=== PATIENT | female | born 1955 | race Two or more races ===

== ENCOUNTER 2025-05-01 16:28 | Inpatient (IN) | payer OTHER ==
[~2025-05-01] VITALS: Ht 157.5 cm; Wt 92.9 kg
[~2025-05-01 16:28] MED LIST: ATOR20TA50 PO; LEVO100T8 PO; LISI-285 PO; TAMO20TA9 PO
[2025-05-01 16:42] VITALS: PULSE 85; RESP 19; O2SAT 97
[2025-05-01 17:01] LABS: Hematocrit 29.6 % (36.0-46.0); Hemoglobin 10.1 g/dL (12.2-16.2); Mean Corpuscular Hemoglobin 32.0 pg (28.0-32.0); Mean Corpuscular Volume 94.1 fL (80.0-100.0); Nucleated Red Blood Cells % 0.1 %
[2025-05-01 17:12] LABS: Chloride 107 mmol/L (98-107); Potassium 3.9 mmol/L (3.5-5.1); Sodium 143 mmol/L (136-145)
[2025-05-01 17:13] LABS: Anion Gap 11 (5-15); Carbon Dioxide 25 mmol/L (20-31)
--- NOTE | 2025-05-01 17:18 | DVH ---
CLINICAL HISTORY: chest pain TECHNIQUE: Single view of the chest was obtained. COMPARISON: None FINDINGS: The heart size is borderline enlarged with pulmonary vascular congestion. No dense consolidation. IMPRESSION: Pulmonary vascular congestion.
[2025-05-01 17:19] LABS: BUN/Creatinine Ratio 17.9 (10.0-20.0); Glucose 106 mg/dL (74-106)
[2025-05-01 17:37] LABS: Urine Protein, UAD Negative (Negative)
[2025-05-01 17:37] LABS: Blood Urea Nitrogen 24 mg/dL (9-23); Calcium 8.6 mg/dL (8.7-10.4)
--- NOTE | 2025-05-01 17:52 | ED.PDOC ---
History of Present Illness HPI Comments 70 year old female presents to the ED via EMS with a chief complaint of flu-like symptoms onset 1 day. Patient states she returned from her trip to [facility] [place] ago. She began experiencing cough, congestion, runny nose, chest pain, shortness of breath since for the past day. She went to [facility], was sent to ED. Patient O2 sat was 97% on RA. Denies fever, nausea, vomiting, diarrhea, headache, dizziness, hematemesis, dysuria, hematuria. No other symptoms or modifying factors present at this time. Chief Complaint: Flu like Time Seen by MD: 17:20 Reviewed Notes: Medications, Allergies Allergies: Coded Allergies: NO KNOWN ALLERGIES (Unverified , 05/01/25) Information Source: Patient, Emergency Med Personnel Mode of Arrival: EMS Severity: Moderate Timing: Days Duration: Since onset Prehospital treatment: None Past Medical History PAST MEDICAL HISTORY: Denies Surgical History: Denies all surgeries TOOL DISPATCHER History: No Pertinent TOOL DISPATCHER History Family History Family History: Reviewed,noncontributory to illness, No family hx of Cancer, No family hx of DM, No family hx of Heart tom, No family hx of HTN, No family hx ofKidney tom, No family hx of Liver tom, No family hx of Lung tom, No family hx of Stroke Social History Smoker: Non-Smoker Alcohol: Denies ETOH Use Drugs: Denies Drug Use Lives In: Home Constitutional: reports: chills; denies: diaphoresis, fatigue, fever, malaise, sweats, weakness, others EENTM: reports: nose congestion; denies: blurred vision, double vision, ear bleeding, ear discharge, ear drainage, ear pain, ear ringing, eye pain, eye redness, hearing loss, mouth pain, mouth swelling, nasal discharge, nose bleeding, nose pain, photophobia, tearing, throat pain, throat swelling, voice changes, others Respiratory: reports: cough, shortness of breath; denies: hemoptysis, orthopnea, SOB at rest, SOB with excertion, stridor, wheezing, others Cardiovascular: reports: chest pain; denies: dizzy spells, diaphoresis, Dyspnea on exertion, edema, irregular heart beat, left arm pain, lightheadedness, palpitations, PND, syncope, others Gastrointestinal: denies: abdomen distended, abdominal pain, blood streaked bowels, constipated, diarrhea, dysphagia, difficulty swallowing, hematemesis, melena, nausea, poor appetite, poor fluid intake, rectal bleeding, rectal pain, vomiting, others Genitourinary: denies: abnormal vagina bleeding, burning, dyspareunia, dysuria, flank pain, frequency, hematuria, incontinence, pain, , vagina discharge, urgency, others Neurological: denies: dizziness, fainting, headache, left sided numbness, left sided weakness, numbness, paresthesia, pre-existing deficit, right sided numbness, right sided weakness, seizure, speech problems, tingling, tremors, weakness, others Musculoskeletal: denies: back pain, gout, joint pain, joint swelling, muscle pain, muscle stiffness, neck pain, others Integumetry: denies: bruises, change in color, change in hair/nails, dryness, laceration, lesions, lumps, rash, wounds, others Allergic/Immunocompromised: denies: Difficulty Healing, Frequent Infections, Hives, Itching, others Hematologic/Lymphatic: denies: anemia, blood clots, easy bleeding, easy bruising, swollen glands, others Endocrine: denies: excessive hunger, excessive sweating, excessive thirst, excessive urination, flushing, intolerance to cold, intolerance to heat, unex plained weight gain, unexplained weight loss, others Psychiatric: denies: anxiety, bipolar disorder, depression, hopeless, panic disorder, schizophrenia, sleepless, suicidal, others All Other Systems: Reviewed and Negative Physical Exam General Appearance: Normal HEENT: Normal ENT Inspection, Pharynx Normal, TMs Normal Neck: Full Range of Motion, Non-Tender, Normal, Normal Inspection Respiratory: Chest Non-Tender, Lungs Clear, No Accessory Muscle Use, No Respiratory Distress, Normal Breath Sounds Cardiovascular: No Edema, No JVD, No Murmur, No Gallop, Normal Peripheral Pulses, Regular Rate/Rhythm Breast Exam: Deferred Gastrointestinal: No Organomegaly, Non Tender, No Pulsatile Mass, Normal Bowel Sounds, Soft Genitalia: Deferred Pelvic: Deferred Rectal: Deferred Extremities: No calf tenderness, Normal capillary refill, Normal inspection, Normal range of motion, Non-tender, No pedal edema Musculoskeletal : Apperance: Normal Neurologic: Alert, cell changer II-XII nml as Tested, No Motor Deficits, Normal Affect, Normal Mood, No Sensory Deficits Cerebellar Function: Normal Reflexes: Normal Skin: Dry, Normal Color, Warm Lymphatic: No Adenopathy Was a procedure done? Was a procedure done?: No Differential Dx Considerations may include: ACS, CVA, viral syndrome, electrolyte abnormality, pulmonary embolism, pneumonia X-Ray, Labs, Meds, VS Vital Signs Date Time Temp Pulse Resp B/P (MAP) Pulse Ox O2 Delivery O2 Flow Rate FiO2 05/01/25 16:42 19 97 Room Air* 0 21 05/01/25 16:42 98.8 85 19 126/45 (72) 97 98.8 05/01/25 16:42 85 19 97 Room Air* 0 21 05/01/25 16:30 85 05/01/25 16:29 98.8 87 18 157/69 97 98.8 Lab Test 05/01/25 17:43 05/01/25 17:09 05/01/25 16:49 Range/Units Troponin I High Sensitivity 90 *H 100 *H </=34 ng/L Urine Color Colorless Yellow Urine Clarity Clear Clear Urine pH 5.5 5.0-9.0 Urine Specific [place] 1.014 1.001-1.035 Urine Protein Negative Negative Urine Ketones Negative Negative Urine Blood Negative Negative /uL Urine Nitrite Negative Negative Urine Bilirubin Negative Negative Urine Urobilinogen Normal Negative mg/dL Urine Leukocyte Esterase Negative Negative /uL Urine RBC <1 0 - 4 /hpf Urine Microscopic WBC 1 0-5 /HPF Urine Squamous Epithelial Cells Few <5 /hpf Urine Bacteria None seen None Seen /hpf Urine Glucose Normal Normal mg/dL White Blood Count 8.3 4.4-10.8 10^3/uL Red Blood Count 3.14 L 4.0-5.20 10^6/uL Hemoglobin 10.1 L 12.2-16.2 g/dL Hematocrit 29.6 L 36.0-46.0 % Mean Corpuscular Volume 94.1 80.0-100.0 fL Mean Corpuscular Hemoglobin 32.0 28.0-32.0 pg Mean Corpuscular Hemoglobin Concent 34.0 32.0-36.0 g/dL Red Cell Distribution Width 12.7 11.8-14.3 % Platelet Count 250 140-450 10^3/uL Mean Platelet Volume 7.0 6.9-10.8 fL Neutrophils (%) (Auto) 73.0 37.0-80.0 % Lymphocytes (%) (Auto) 18.7 10.0-50.0 % Monocytes (%) (Auto) 7.0 0.0-12.0 % Eosinophils (%) (Auto) 0.9 0.0-7.0 % Basophils (%) (Auto) 0.4 0.0-2.0 % Neutrophils # (Auto) 6.1 1.6-8.6 10 ^3/uL Lymphocytes # (Auto) 1.6 0.4-5.4 10 ^3/uL Monocytes # (Auto) 0.6 0-1.3 10 ^3/uL Eosinophils # (Auto) 0.1 0-0.8 10 ^3/uL Basophils # (Auto) 0 0-0.2 10 ^3/uL Nucleated Red Blood Cells 0.1 % D-Dimer, Quantitative 1.80 H 0.0-0.49 mg/L FEU Sodium Level 143 136-145 mmol/L Potassium Level 3.9 3.5-5.1 mmol/L Chloride Level 107 98-107 mmol/L Carbon Dioxide Level 25 20-31 mmol/L Anion Gap 11 5-15 Blood Urea Nitrogen 24 H 9-23 mg/dL Creatinine 1.34 H 0.550-1.02 mg/dL Glomerular Filtration Rate Calc 42 >90 mL/min BUN/Creatinine Ratio 17.9 10.0-20.0 Serum Glucose 106 74-106 mg/dL Calcium Level 8.6 L 8.7-10.4 mg/dL Time of 1ST Reevaluation: 17:50 Reevaluation 1ST: Unchanged Patient Education/Counseling: Diagnosis, Treatment, Prognosis Family Education/Counseling: No Family Present SEPSIS Sepsis Screen Date sepsis recognized/suspect: May 01, 2025 Time Sepsis recognized/suspect: 1641 Recent Procedure: No On Antibiotic Therapy: No Respiratory Rate >20: No Heart Rate >90: No Temp<36 C (96.8 F) or >38.3 C: No SBP <90 or MAP <65 mmHG: No New Acute Mental Status Change: No Is the patient on CPAP, BIPAP,: No Physician Orders Chest Portable (05/01/25 16:37) Electrocardigram (05/01/25 16:34) Troponin-I Hs (05/01/25 19:34) Electrocardigram (05/01/25 17:34) Electrocardigram (05/01/25 19:34) Ct Angio Chest Contrast (05/01/25 18:13) Vital Signs Date Time Temp Pulse Resp B/P (MAP) Pulse Ox O2 Delivery O2 Flow Rate FiO2 05/01/25 16:42 19 97 Room Air* 0 21 05/01/25 16:42 98.8 85 19 126/45 (72) 97 98.8 05/01/25 16:42 85 19 97 Room Air* 0 21 05/01/25 16:30 85 05/01/25 16:29 98.8 87 18 157/69 97 98.8 Laboratory Tests Test 05/01/25 16:49 White Blood Count 8.3 10^3/uL (4.4-10.8) Departure 1 Departure Time of Disposition: 18:35 (Patient with worsening shortness of breath and generalized weakness concerning for possible PE given recent flight. We will get a CT angio patient admit patient for further workup and expert consultation) Impression: Primary Impression: Acute dyspnea Additional Impressions: Generalized weakness Elevated d-dimer Disposition: ADMITTED INPATIENT Admit to: Tele Condition: Guarded Critical Care Note Critical Care Time?: Yes Critical care comment: Concern for PE and acute chest pain Authorized and Performed by: James Jon MD Total critical care time: Approximately 47 minutes Due to a high probability of clinically significant, life threatening deterioration, the patient required my highest level of preparedness to intervene emergently and I personally spent this critical care time directly and personally managing the patient. This critical care time included obtaining a history; examining the patient; pulse oximetry; ordering and review of studies; arranging urgent treatment with development of a management plan; evaluation of patient's response to treatment; frequent reassessment; and, discussions with other providers. This critical care time was performed to assess and manage the high probability of imminent, life-threatening deterioration that could result in multi-organ failure. It was exclusive of separately billable procedures and treating other patients and teaching time. Please see my other sections and the rest of the note for further information on patient assessment and treatment. Stability Stability form required: No Heart Score Heart Score: Heart Score Response (Comments) Value History N/A 0 EKG N/A 0 Age N/A 0 Risk Factors N/A 0 Troponin N/A 0 Total 0 I personally scribed for JAMES JON MD ([email or web address]) on 05/01/25 at 17:52. Electronically submitted by Manju Holly ([email or web address]). JAMES JON MD May 01, 2025 17:52
[2025-05-01] MEDS: IOHEXOL 350 MG/ML 100ML IJ ONE (18:21)
[2025-05-01] MEDS: SODIUM CHLORIDE 0.9% 500 ML IV ONE (18:51)
--- NOTE | 2025-05-01 19:07 | DVH ---
EXAM: CT CT ANGIO CHEST CONTRAST HISTORY: chest pain, sob, elevated ddimer TECHNIQUE: CT angiogram was performed. CT scans at this facility use dose modulation, iterative recon struction, and/or weight based dosing when appropriate to reduce radiation dose to as low as reasonab ly achievable. Coronal and sagittal reformations and maximum intensity projection images were created from the transaxial source data by the charge histotechnologist and workstation, as well as 3-D volume render ed images with MIPs. COMPARISON: None FINDINGS: [LOWER NECK]: Unremarkable [LYMPH NODES/MEDIASTINUM]: Right lower paratracheal lymph node, 0.9 cm. [CARDIOVASCULAR]: Normal cardiac size. No pericardial effusion. No aneurysmal dilatation of the great vessels. Coronary artery calcifications. [PULMONARY ARTERIES]: No pulmonary arterial filling defect. Normal caliber of the main pulmonary joshua ry. No evidence of elevated right heart pressures. [UPPER ABDOMEN]: Unremarkable. [MUSCULOSKELETAL]: No acute fracture or aggressive focal osseous lesion. Multilevel degenerative newton ge of the visualized spine. Vertebral body hemangioma of T6. [CHEST WALL]: Unremarkable. [LUNG PARENCHYMA/PLEURAL SPACE]: Areas of ground-glass in the periphery of the right upper lobe likel y related to areas of pulmonary alveolar edema. Likely exaggerated secondary to expiratory phase of i maging. No pleural effusion or pneumothorax. IMPRESSION: 1. No acute pulmonary embolism. 2. Areas of ground-glass in the periphery of the right upper lobe likely related to areas of pulmonar y alveolar edema.
[2025-05-01 19:23] VITALS: PULSE 92; RESP 20; O2SAT 97
[2025-05-01] MEDS: guaiFENesin-DM 100/10mg/5ml SYR PO ONE (20:41)
[2025-05-01] MEDS ORDERED: NITROGLYCERIN 0.4 MG SL TAB SL PRN (21:00)
[2025-05-01] MEDS ORDERED: MORPHINE SULFATE INJ 2 MG/ml SYRG IV PRN (21:00)
--- NOTE | 2025-05-01 21:04 | DVHHPRES ---
History of Present Illness Resident Creating Document: DESIREE READ RESIDENT History of Present Illness Verónica Keenan is a 70-year-old female patient who presents to the ED with chief complaint of progressive aching chest pain located focally in left side of chest, radiates towards the back, intensity 8/10, worsens with cough, lying flat and deep breaths, improves with a leaning forward, initially started in Functional Class II and progressed to functional class IV three days before her admission, associated with dyspnea, chills, bilateral leg swelling and nonproductive cough. Patient reports recent 12 hour flight which was completed on Wednesday (04/29/2025). She also reports diagnosis of otitis media two weeks ago requiring prednisone and amoxicillin. Denies any other associated symptom Past medical history: Hypertension, dyslipidemia, left breast cancer diagnosed four years ago status post lumpectomy and radiotherapy, asthma, hypothyroidism, urinary incontinence and vulvar atrophy Surgical history: Left breast lumpectomy, tendon repair in left finger Family history: Six and have breast cancer Social history: Lives in [place] with the (negative can not). Denies current tobacco, alcohol and other drug abuse Allergies: Denies Home medication: Tamoxifen, lisinopril/hydrochlorothiazide, atorvastatin, lev othyroxine, benzonatate, albuterol, amoxicillin, prednisone (these last two only for two weeks due to otitis media) Patient is seen and examined at bedside. Currently still complains of cough and chest pain. Patient will be admitted for further management. Past Medical History Per HPI Past Surgical History Per HPI Family History Per HPI Past Social History Per HPI Review of Systems Review of Systems Per HPI Allergies: Coded Allergies: NO KNOWN ALLERGIES (Unverified , 05/01/25) Exam Vital Signs Vital Signs Date Time Temp Pulse Resp B/P (MAP) Pulse Ox O2 Delivery O2 Flow Rate FiO2 05/01/25 19:23 92 20 97 Room Air* 0 21 05/01/25 19:23 98.1 152/88 (109) 98.1 Exam Patient lying in bed, in no acute distress General: Lucid, afebrile, mucosae are moist Cardiovascular: Normal S1 and S2. pericardial rub present. No murmurs, gallops. Chest pain improves with leaning forward, worsens in decubitus Respiratory: Normal ventilation mechanics. Bibasilar crackles of lung auscultation is clear Abdomen: Soft, nontender, no organomegaly, normal bowel sounds MSK/skin: Mobilizes 4 limbs. Skin is dry and warm. Bilateral infrapatellar pitting edema Neurological: Oriented in 3 spheres. No motor no sensitive deficits. Pupils are isocoric and reactive Labs/Xrays Labs Test 05/01/25 19:52 05/01/25 17:09 05/01/25 16:49 Range/Units Troponin I High Sensitivity 123 *H </=34 ng/L Urine Color Colorless Yellow Urine Clarity Clear Clear Urine pH 5.5 5.0-9.0 Urine Specific [place] 1.014 1.001-1.035 Urine Protein Negative Negative Urine Ketones Negative Negative Urine Blood Negative Negative /uL Urine Nitrite Negative Negative Urine Bilirubin Negative Negative Urine Urobilinogen Normal Negative mg/dL Urine Leukocyte Esterase Negative Negative /uL Urine RBC <1 0 - 4 /hpf Urine Microscopic WBC 1 0-5 /HPF Urine Squamous Epithelial Cells Few <5 /hpf Urine Bacteria None seen None Seen /hpf Urine Glucose Normal Normal mg/dL White Blood Count 8.3 4.4-10.8 10^3/uL Red Blood Count 3.14 L 4.0-5.20 10^6/uL Hemoglobin 10.1 L 12.2-16.2 g/dL Hematocrit 29.6 L 36.0-46.0 % Mean Corpuscular Volume 94.1 80.0-100.0 fL Mean Corpuscular Hemoglobin 32.0 28.0-32.0 pg Mean Corpuscular Hemoglobin Concent 34.0 32.0-36.0 g/dL Red Cell Distribution Width 12.7 11.8-14.3 % Platelet Count 250 140-450 10^3/uL Mean Platelet Volume 7.0 6.9-10.8 fL Neutrophils (%) (Auto) 73.0 37.0-80.0 % Lymphocytes (%) (Auto) 18.7 10.0-50.0 % Monocytes (%) (Auto) 7.0 0.0-12.0 % Eosinophils (%) (Auto) 0.9 0.0-7.0 % Basophils (%) (Auto) 0.4 0.0-2.0 % Neutrophils # (Auto) 6.1 1.6-8.6 10 ^3/uL Lymphocytes # (Auto) 1.6 0.4-5.4 10 ^3/uL Monocytes # (Auto) 0.6 0-1.3 10 ^3/uL Eosinophils # (Auto) 0.1 0-0.8 10 ^3/uL Basophils # (Auto) 0 0-0.2 10 ^3/uL Nucleated Red Blood Cells 0.1 % D-Dimer, Quantitative 1.80 H 0.0-0.49 mg/L FEU Sodium Level 143 136-145 mmol/L Potassium Level 3.9 3.5-5.1 mmol/L Chloride Level 107 98-107 mmol/L Carbon Dioxide Level 25 20-31 mmol/L Anion Gap 11 5-15 Blood Urea Nitrogen 24 H 9-23 mg/dL Creatinine 1.34 H 0.550-1.02 mg/dL Glomerular Filtration Rate Calc 42 >90 mL/min BUN/Creatinine Ratio 17.9 10.0-20.0 Serum Glucose 106 74-106 mg/dL Calcium Level 8.6 L 8.7-10.4 mg/dL SEPSIS Sepsis Screen Date sepsis recognized/suspect: May 01, 2025 Time Sepsis recognized/suspect: 1926 Recent Procedure: No On Antibiotic Therapy: No Respiratory Rate >20: No Heart Rate >90: No Temp<36 C (96.8 F) or >38.3 C: No SBP <90 or MAP <65 mmHG: No New Acute Mental Status Change: No Is the patient on CPAP, BIPAP,: No Physician Orders Chest Portable (05/01/25 16:37) Electrocardigram (05/01/25 16:34) Electrocardigram (05/01/25 17:34) Electrocardigram (05/01/25 19:34) Ct Angio Chest Contrast (05/01/25 18:13) Rapid Influenza A&B (05/01/25 20:25) Covid19 Antigen Alecia (05/01/25 ) Vitamin D, 25-Hydroxy (05/01/25 20:59) Vitamin B12 (05/01/25 20:59) Thyroid Stimulating Hormone (05/01/25 20:59) PTPTT (05/02/25 04:00) Phosphorus (05/01/25 20:59) Magnesium (05/01/25 20:59) Lipid Panel (05/01/25 20:59) Lactic Acid W/ Reflex Order (05/01/25 20:59) Hemoglobin A1c (05/01/25 20:59) Drug Screen (05/01/25 20:59) Admit (05/01/25 20:59) Code Status (05/01/25 20:59) Acetaminophen Tablet (Tylenol Tablet) (05/01/25 21:00) Complete Blood Count (05/02/25 04:00) Comprehensive Metabolic Panel (05/02/25 04:00) Npo (Nothing By Mouth) Diet (05/02/25 Breakfast) Echo 2d Mode Cardiac Dop (05/01/25 20:59) Morphine Sulfate Injection (05/01/25 21:00) Lovenox 40mg (05/02/25 10:00) Nitroglycerin Sublingual (Ntrostat Subli (05/01/25 21:00) Morphine Sulfate Injection (05/01/25 21:00) Oxygen By Nasal Cannula (05/01/25 20:59) Stat Ekg For Chest Pain (05/01/25 20:59) Notify Of Changes From Base (05/01/25 20:59) Auto Service Representative For 24 Hours (05/01/25 20:59) Emergency Dysrhythmia Protocol (05/01/25 20:59) Rhythm Strips Once Every Shift (05/01/25 20:59) Aspirin Tablet (05/02/25 10:00) Atorvastatin (Lipitor) (05/01/25 22:00) Vital Signs Date Time Temp Pulse Resp B/P (MAP) Pulse Ox O2 Delivery O2 Flow Rate FiO2 05/01/25 19:23 92 20 97 Room Air* 0 21 05/01/25 19:23 98.1 95 20 152/88 (109) 97 98.1 05/01/25 18:30 98.1 95 20 140/64 (89) 95 98.1 05/01/25 17:30 85 18 126/50 (75) 97 05/01/25 16:42 19 97 Room Air* 0 21 05/01/25 16:42 98.8 85 19 126/45 (72) 97 98.8 05/01/25 16:42 85 19 97 Room Air* 0 21 05/01/25 16:30 85 05/01/25 16:29 98.8 87 18 157/69 97 98.8 Laboratory Tests Test 05/01/25 16:49 White Blood Count 8.3 10^3/uL (4.4-10.8) Medications Medications Dose Ordered Sig/Magy Route Start Time Stop Time Status Last Admin Dose Admin Guaifenesin/ Dextromethorphan 5 ml ONCE ONCE PO 05/01/25 20:45 05/01/25 20:46 DC 05/01/25 20:41 5 ML Sodium Chloride 500 ml @ 500 mls/hr Q1H ONCE IV 05/01/25 19:00 05/01/25 19:59 DC 05/01/25 18:51 500 MLS/HR Assessment/Plan Assessment/Plan Acute on newly diagnosed heart failure (LVEF unknown) NSTEMI probable type 2 Pleuritic chest pain Probable myopericarditis Probable viral pneumonia Ruled out pulmonary embolism Rule out DVT Completed EKG which shows normal sinus rhythm with no ST-elevation no MA depression. Troponin elevated but flat trending (100-90-123). Chest pain is non anginal (seemed pleuritic) Ordered echocardiogram to evaluate LVEF, wall motility abnormalities and pericardial disease. Completed Angio CT which ruled out pulmonary embolism, does present pulmonary edema Indicated IV furosemide (20 mg b.i.d.) Ordered [place] cultures (blood, urine, sputum) and influenza/COVID swabs. Currently under empiric IV antibiotic (cefepime and azithromycin) Did not start steroids since patient is with no oxygen requirement Ordered bilateral lower limb extremity ultrasound to rule out DVT Ordered ESR and CRP. We will expect on colchicine and ibuprofen treatment. Patient may benefit from prednisone due to her ROXANE. ROXANE hemodynamically mediated (VMN) Monitor kidney function with BMP Pending initiating treatment with colchicine and ibuprofen History of otitis media Patient completed course of steroids and antibiotic (amoxicillin) two weeks ago History of breast cancer status post left lumpectomy and radiotherapy Vulvar atrophy Urinary incontinence Patient is currently on tamoxifen and estrogen cream Due to procoagulant state, ordered Angio CT which ruled out PE, pending bilateral lower limb ultrasound to rule out DVT Due to radiation, patient can have diastolic dysfunction. Ordered echocardiogram Hold estrogen and tamoxifen at this point. Evaluate reinitiating during hospital course Hypothyroidism Continue [id number] mcg p.o. daily, ordered TSH, pending Hypertension Dyslipidemia Obesity Continue home medication Gave her advice on healthy lifestyle habits Goals of care discussed with patient for over 18 minutes: Full code status Discussed plan with Dr. Prescott, patient and nurses: Patient admitted to [facility] due to acute on newly diagnosed heart failure with NSTEMI probable type. Ordered echocardiogram. Currently on IV diuretics and empiric IV antibiotic (cefepime and azithromycin). Pending complementary workup results. Patient is unstable for transferred to [place] Plan discussed with: Patient, Spouse, Other (Nurses) My Orders Orders - DESIREE READ RESIDENT Procedure Category Date Status Time Vitamin D, 25-Hydroxy LAB 05/01/25 Transmitted 20:59 Vitamin B12 LAB 05/01/25 Transmitted 20:59 Thyroid Stimulating LAB 05/01/25 Transmitted Hormone 20:59 PTPTT LAB 05/02/25 Verified 04:00 Phosphorus LAB 05/01/25 Transmitted 20:59 Magnesium LAB 05/01/25 Transmitted 20:59 Lipid Panel LAB 05/01/25 Transmitted 20:59 Lactic Acid W/ Reflex LAB 05/01/25 Transmitted Order 20:59 Hemoglobin A1c LAB 05/01/25 Transmitted 20:59 Drug Screen LAB 05/01/25 Transmitted 20:59 Admit ADMIT 05/01/25 Transmitted 20:59 Code Status CODE 05/01/25 Transmitted 20:59 Acetaminophen Tablet PHA 05/01/25 Transmitted (Tylenol Tablet) 21:00 Complete Blood Count LAB 05/02/25 Verified 04:00 Comprehensive LAB 05/02/25 Verified Metabolic Panel 04:00 Npo (Nothing By DIET 05/02/25 Transmitted Mouth) Diet Breakfast Echo 2d Mode Cardiac US 05/01/25 Transmitted DOP 20:59 Morphine Sulfate PHA 05/01/25 Transmitted Injection 21:00 Lovenox 40mg PHA 05/02/25 Transmitted 10:00 Nitroglycerin PHA 05/01/25 Transmitted Sublingual (Ntrostat 21:00 Morphine Sulfate PHA 05/01/25 Transmitted Injection 21:00 Oxygen By Nasal RT 05/01/25 Transmitted Cannula 20:59 Stat Ekg For Chest SANTOSH 05/01/25 Transmitted Pain 20:59 Notify Md Of Changes SANTOSH 05/01/25 Transmitted From Base 20:59 Auto Service Representative For SANTOSH 05/01/25 Transmitted 24 Hours 20:59 Emergency Dysrhythmia SANTOSH 05/01/25 Transmitted Protocol 20:59 Rhythm Strips Once SANTOSH 05/01/25 Transmitted Every Shift 20:59 Aspirin Tablet PHA 05/02/25 Transmitted 10:00 Atorvastatin (Lipitor) PHA 05/01/25 Transmitted 22:00 Date of Service: May 01, 2025 Billing Provider: CRISSY PRESCOTT MD Common Visit Codes: [id number] INP/OBS CARE (HIGH) Secondary Visit Codes: [id number] CARE PLAN 30 MINUTES DESIREE READ RESIDENT May 01, 2025 21:04
[2025-05-01] MEDS: LISINOPRIL 5 MG TAB PO ONE (21:45)
[2025-05-01] MEDS: FUROSEMIDE 20 MG/2 ML VIAL IV ONE (21:45)
[2025-05-01] MEDS: CEFEPIME 1GM/50ML 50 ML IV ONE (21:45)
[2025-05-01] MEDS: AZITHROMYCIN 500MG/ 250ML 250 ML IV ONE (21:45)
[2025-05-01] MEDS: ATORVASTATIN 20 MG TAB PO SCH (21:59)
[2025-05-01 22:03] LABS: Alanine Aminotransferase 27 U/L (7-40); Albumin 3.4 g/dL (3.2-4.8); Alkaline Phosphatase 48 U/L (46-116); Cholesterol 102 mg/dL (< 200); Total Protein 5.7 g/dL (5.7-8.2)
[2025-05-01 22:08] LABS: Bilirubin, Direct < 0.1 mg/dL (<0.3); Bilirubin, Total 0.2 mg/dL (0.2-1.0); HDL Cholesterol 38 mg/dL (40-59); Magnesium 1.5 mg/dL (1.6-2.6); Triglycerides 220 mg/dL (< 150)
[2025-05-01 22:15] VITALS: BP 157/88; PULSE 95; RESP 20; TEMP 98.1; O2SAT 97
[2025-05-01 22:35] LABS: INR 1.03 (0.9-1.15); Partial Thromboplastin Time 27.5 SEC (24.5-34.5); Prothrombin Time 10.9 sec (9.3-11.8)
--- NOTE | 2025-05-01 22:40 | DVH ---
CLINICAL HISTORY: Bilateral limb swelling TECHNIQUE: Color and duplex doppler imagine of the bilateral lower extremity veins was performed. Ves chris compression and augmentation if possible was also performed. COMPARISON: None FINDINGS: Right Lower Extremity: Right common femoral vein: Normal compressibility and flow. Right superficial femoral vein: Normal compressibility and flow. Right popliteal vein: Normal compressibility and flow. Proximal calf veins demonstrate flow. Left Lower Extremity: Left common femoral vein: Normal compressibility and flow. Left superficial femoral vein: Normal compressibility and flow. Left popliteal vein: Normal compressibility and flow. Proximal calf veins demonstrate flow. IMPRESSION: NO SONOGRAPHIC EVIDENCE FOR DEEP VENOUS THROMBOSIS IN THE BILATERAL LOWER EXTREMITY VEINS.
[2025-05-01] MEDS ORDERED: DEXTROSE (50%) 50ML SYRG IV PRN (23:30)
[2025-05-01 23:34] LABS: COVID19 ANTIGEN SOFIA FIA NEGATIVE (NEGATIVE)
[2025-05-01 23:40] LABS: Barbiturate Scree,Urine Neg (NEGATIVE); Opiate Scree,Urine Neg (NEGATIVE); Phencyclidine Screen, Urine Neg (NEGATIVE)
[2025-05-01 23:41] LABS: Amphetamine Screen, Urine Neg (NEGATIVE); Benzodiazephine Screen, Urine Neg (NEGATIVE); Cannabinoid Screen, Urine Neg (NEGATIVE); Cocaine Screen, Urine Neg (NEGATIVE)
[2025-05-02] VITALS (15 sets, daily range): BP systolic 114–133; BP diastolic 52–66; PULSE 93–106; RESP 16–20; TEMP 98.9–102.1; O2SAT 84–99
[2025-05-02] MEDS: ACETAMINOPHEN 325 MG TAB PO PRN (00:33)
[2025-05-02] MEDS: IPRATROPIUM BROM 0.5 MG/2.5ML INH SOL NEB SCH (00:41)
[2025-05-02] MEDS: LEVALBUTEROL HCL 1.25 MG/3 ML NEB NEB SCH (00:41)
[2025-05-02] MEDS: MAGNESIUM SULFATE 1GM/100ML 100 ML IV SCH (01:00)
[2025-05-02] MEDS ORDERED: IPRATROPIUM BROM 0.5 MG/2.5ML INH SOL NEB SCH (06:00)
[2025-05-02] MEDS: FUROSEMIDE 20 MG/2 ML VIAL IV SCH (06:00)
[2025-05-02] MEDS: InsuLIN REG 1unit/0.01ml Soln (100units/ml) SC SCH (06:27)
[2025-05-02] MEDS: LEVOTHYROXINE SODIUM 25 MCG TAB PO SCH (06:29)
[2025-05-02 06:48] LABS: Hematocrit 28.8 % (36.0-46.0); Hemoglobin 9.8 g/dL (12.2-16.2); Mean Corpuscular Hemoglobin 31.7 pg (28.0-32.0); Mean Corpuscular Volume 92.8 fL (80.0-100.0); Nucleated Red Blood Cells % 0.1 %
[2025-05-02 06:54] LABS: Alanine Aminotransferase 28 U/L (7-40); Albumin 4.1 g/dL (3.2-4.8); Anion Gap 12 (5-15); BUN/Creatinine Ratio 12.3 (10.0-20.0); Bilirubin, Total 0.4 mg/dL (0.2-1.0); Blood Urea Nitrogen 16 mg/dL (9-23); Carbon Dioxide 24 mmol/L (20-31); Chloride 106 mmol/L (98-107); Potassium 4.0 mmol/L (3.5-5.1); Sodium 142 mmol/L (136-145); Total Protein 6.7 g/dL (5.7-8.2)
[2025-05-02 06:56] LABS: Alkaline Phosphatase 44 U/L (46-116); Calcium 8.6 mg/dL (8.7-10.4); Glucose 119 mg/dL (74-106)
[2025-05-02 06:58] LABS: INR 1.04 (0.9-1.15); Partial Thromboplastin Time 27.7 SEC (24.5-34.5); Prothrombin Time 11.0 sec (9.3-11.8)
[2025-05-02] MEDS: AZITHROMYCIN 500MG/ 250ML 250 ML IV SCH (10:23)
[2025-05-02] MEDS: ACCU-CHEK COMFORT CURVE STRIP VI SCH (10:25)
[2025-05-02] MEDS: ENOXAPARIN SOD 40 MG/0.4 ML SYRINGE SC SCH (10:30)
[2025-05-02] MEDS: LISINOPRIL 5 MG TAB PO SCH (10:30)
[2025-05-02] MEDS: CEFEPIME 1GM/50ML 50 ML IV SCH (11:17)
[2025-05-02] MEDS: MORPHINE SULFATE 4 MG/ML SYR/VIAL IV PRN (11:27)
--- NOTE | 2025-05-02 11:46 | DVHPN2 ---
Progress Note Date Seen: May 02, 2025 Medical Necessity Reason Pt with a Central, PICC or Fol: No Subjective Patient reports: No new complaints Review of Systems: HEENT:Normal, CVS:Normal, RESPIRATORY:Normal, GI:Normal, :Normal, MSK:Normal, NEURO:Normal Objective vital signs Vital Sign Date Time Temp Pulse Resp B/P (MAP) Pulse Ox O2 Delivery O2 Flow Rate FiO2 05/02/25 11:27 97 18 118/56 05/02/25 09:00 99.2 96 99.2 05/02/25 05:50 Room Air 05/02/25 05:50 0 21 Total Intake and Output 05/01/25 05/01/25 05/02/25 15:00 23:00 07:00 Intake Total 0 ml Balance 0 ml medications Current Medications Medications Dose Ordered Sig/Magy Route Start Time Stop Time Status Last Admin Dose Admin Acetaminophen 325 mg Q4HP PRN PO 05/01/25 21:00 05/02/25 00:33 325 MG Morphine Sulfate 2 mg Q4HPRN PRN IV 05/01/25 21:45 05/02/25 11:27 2 MG Enoxaparin Sodium 40 mg DAILY SC 05/02/25 10:00 05/02/25 10:30 40 MG Nitroglycerin 0.4 mg Q5MINP PRN SL 05/01/25 21:00 Morphine Sulfate 2 mg Q30M PRN IV 05/01/25 21:00 Aspirin 81 mg DAILY PO 05/02/25 10:00 05/02/25 10:29 81 MG Atorvastatin Calcium 40 mg HS PO 05/01/25 22:00 05/01/25 21:59 40 MG Levalbuterol HCl 0.625 mg Q6HR NEB 05/02/25 00:00 05/02/25 05:50 0.625 MG Guaifenesin/ Codeine Phosphate 5 ml Q4HPRN PRN PO 05/01/25 21:45 Furosemide 20 mg BIDD IV 05/02/25 06:00 Lisinopril 5 mg DAILY PO 05/02/25 10:00 05/02/25 10:30 5 MG Levothyroxine Sodium 25 mcg QAM@0600 PO 05/02/25 06:00 05/02/25 06:29 25 MCG Cefepime HCl 50 ml @ 12.5 mls/hr Q12HR IV 05/02/25 10:00 05/02/25 11:17 12.5 MLS/HR Azithromycin 250 ml @ 125 mls/hr DAILY IV 05/02/25 10:00 05/02/25 10:23 125 MLS/HR Ipratropium [place] 0.5 mg Q6HR NEB 05/02/25 00:00 05/02/25 05:50 0.5 MG Diagnostic Test (Pha) 1 strip ACHS 05/02/25 07:00 05/02/25 10:25 1 STRIP Insulin Human Regular ACHS SC 05/02/25 07:00 05/02/25 10:47 3 UNITS Dextrose 50 ml UD PRN IV 05/01/25 23:30 Examination: GENERAL:Normal, HEENT:Normal, NECK:Normal, LUNGS:Normal, CVS:Normal, ABDOMEN:Normal, MSK:Normal, MSK:Abnormal (edema++), SKIN:Normal, NEURO:Normal, :Normal laboratory and microbiology Laboratory Tests 05/02/25 05:56 Test 05/02/25 05:56 Range/Units Serum Glucose 119 H 74-106 mg/dL Problem List/Assessment/Plan Problem List/Assessment/Plan #1 likely pneumonia with sepsis: iv antibiotics #2 nstemi: cardio eval #3 ?acute systolic/diastolic heart failure: lasix iv #4 h/o breast cancer #5 obesity #6 htn #7 hyperlipidemia #8 asthma #9 hypothyroidism: cont meds unstable for transfer advance care planning- full code- time spent 18mins Plan discussed with: Patient, Spouse Date of Service: May 02, 2025 Billing Provider: JAMES SEO MD Common Visit Codes: [id number] INP/OBS CARE(HIGH) Secondary Visit Codes: [id number] CARE PLAN 30 MINUTES JAMES SEO MD May 02, 2025 11:46
[2025-05-02] MEDS: DOXYCYCLINE 100MG/100ML 100 ML IV SCH (14:47)
[2025-05-02] MEDS: guaiFENesin-CODEINE Liq 5 ML UD PO PRN (22:14)
[2025-05-03] VITALS (19 sets, daily range): BP systolic 100–130; BP diastolic 49–66; PULSE 81–100; RESP 16–24; TEMP 97.6–99.2; O2SAT 90–100
--- NOTE | 2025-05-03 05:22 | DVH ---
CHEST RADIOGRAPH Indication: chf Technique: Single frontal view of the chest was obtained COMPARISON: CT CT ANGIO CHEST CONTRAST on DOS: 05/01/25, XY CHEST PORTABLE on DOS: 05/01/25 FINDINGS: Lines and Tubes: None Lungs: Diffuse increased prominence of the pulmonary vasculature. No evidence of focal consolidation . Pleura: No effusion. No pneumothorax. Cardiomediastinal contours: Cardiomegaly. Bones: Unremarkable IMPRESSION: 1. Cardiomegaly with pulmonary vascular congestion.
[2025-05-03 05:56] LABS: Hematocrit 28.9 % (36.0-46.0); Hemoglobin 9.6 g/dL (12.2-16.2); Mean Corpuscular Hemoglobin 32.2 pg (28.0-32.0); Mean Corpuscular Volume 96.8 fL (80.0-100.0); Nucleated Red Blood Cells % 0.1 %
[2025-05-03 05:57] LABS: Anion Gap 11 (5-15); Carbon Dioxide 23 mmol/L (20-31); Chloride 103 mmol/L (98-107); Potassium 4.1 mmol/L (3.5-5.1); Sodium 137 mmol/L (136-145)
[2025-05-03 06:03] LABS: BUN/Creatinine Ratio 9.5 (10.0-20.0); Blood Urea Nitrogen 12 mg/dL (9-23); Glucose 97 mg/dL (74-106)
[2025-05-03 06:04] LABS: Magnesium 1.9 mg/dL (1.6-2.6)
[2025-05-03 06:13] LABS: Calcium 8.2 mg/dL (8.7-10.4)
--- NOTE | 2025-05-03 10:06 | DVHPN2 ---
Progress Note Date Seen: May 03, 2025 Medical Necessity Reason Pt with a Central, PICC or Fol: No Subjective Patient reports: No new complaints Review of Systems: HEENT:Normal, CVS:Normal, RESPIRATORY:Normal, GI:Normal, :Normal, MSK:Normal, NEURO:Normal Objective vital signs Vital Sign Date Time Temp Pulse Resp B/P (MAP) Pulse Ox O2 Delivery O2 Flow Rate FiO2 05/03/25 09:03 99.2 86 23 114/49 (70) 94 99.2 05/03/25 06:43 Room Air* 2 N/A Nasal Cannula* Total Intake and Output 05/02/25 05/02/25 05/03/25 15:00 23:00 07:00 Intake Total 750 ml 1050 ml Output Total 4 ml Balance 746 ml 1050 ml medications Current Medications Medications Dose Ordered Sig/Magy Route Start Time Stop Time Status Last Admin Dose Admin Acetaminophen 325 mg Q4HP PRN PO 05/01/25 21:00 05/03/25 06:05 325 MG Morphine Sulfate 2 mg Q4HPRN PRN IV 05/01/25 21:45 05/02/25 18:41 2 MG Nitroglycerin 0.4 mg Q5MINP PRN SL 05/01/25 21:00 Morphine Sulfate 2 mg Q30M PRN IV 05/01/25 21:00 Aspirin 81 mg DAILY PO 05/02/25 10:00 05/03/25 09:19 81 MG Atorvastatin Calcium 40 mg HS PO 05/01/25 22:00 05/02/25 21:45 40 MG Levalbuterol HCl 0.625 mg Q6HR NEB 05/02/25 00:00 05/03/25 06:43 0.625 MG Guaifenesin/ Codeine Phosphate 5 ml Q4HPRN PRN PO 05/01/25 21:45 05/02/25 22:14 5 ML Furosemide 20 mg BIDD IV 05/02/25 06:00 05/03/25 06:04 20 MG Levothyroxine Sodium 25 mcg QAM@0600 PO 05/02/25 06:00 05/03/25 06:05 25 MCG Ipratropium [place] 0.5 mg Q6HR NEB 05/02/25 00:00 05/03/25 06:43 0.5 MG Diagnostic Test (Pha) 1 strip ACHS 05/02/25 07:00 05/03/25 06:13 1 STRIP Insulin Human Regular ACHS SC 05/02/25 07:00 05/02/25 21:56 2 UNITS Dextrose 50 ml UD PRN IV 05/01/25 23:30 Ceftriaxone Sodium 50 ml @ 100 mls/hr DAILY@09 IV 05/02/25 16:00 05/03/25 09:20 100 MLS/HR Doxycycline Hyclate 100 ml @ 50 mls/hr Q12HR IV 05/02/25 12:30 05/02/25 21:45 50 MLS/HR Examination: GENERAL:Normal, HEENT:Normal, NECK:Normal, LUNGS:Normal, LUNGS:Abnormal (ON OXYGEN), CVS:Normal, ABDOMEN:Normal, MSK:Normal, SKIN:Normal, NEURO:Normal, :Normal laboratory and microbiology Laboratory Tests 05/03/25 05:20 Test 05/03/25 05:20 Range/Units Serum Glucose 97 74-106 mg/dL Microbiology Date/Time Source Procedure Growth Status 05/01/25 22:18 Blood Blood Culture - Preliminary NO GROWTH AFTER 24 HOURS OF INCUBATION. Resulted Problem List/Assessment/Plan Problem List/Assessment/Plan #1 pneumonia- gram positive/neg with sepsis: iv antibiotics, check legionella #2 nstemi: cardio eval #3 ?acute systolic/diastolic heart failure: lasix iv #4 h/o breast cancer #5 obesity #6 htn #7 hyperlipidemia #8 asthma #9 hypothyroidism: cont meds #10 acute resp failure: cont oxygen unstable for transfer advance care planning- full code- time spent 18mins Plan discussed with: Patient, Spouse My Orders My Orders Orders - JAMES SEO MD Procedure Category Date Status Time * Cardiology Consult CONS 05/02/25 Transmitted 11:39 Doxycycline PHA 05/02/25 In Process 100mg/100ml 12:30 Chest Portable XY 05/03/25 Resulted 06:00 Ceftriaxone 1gm/50ml PHA 05/02/25 In Process (Rocephin) 16:00 Levofloxacin Levaquin PHA 05/03/25 Transmitted 10:00 Levofloxacin Levaquin PHA 05/03/25 Transmitted 10:00 Legionella LAB 05/03/25 Transmitted Pneumophila Abs 09:53 Comprehensive LAB 05/04/25 Verified Metabolic Panel 06:00 Complete Blood Count LAB 05/04/25 Verified 06:00 Ferritin LAB 05/04/25 Verified 05:00 Iron Panel LAB 05/04/25 Verified 06:00 Furosemide Injection PHA 05/03/25 Transmitted (Lasix Injection) 10:00 Magnesium LAB 05/04/25 Verified 05:00 Date of Service: May 03, 2025 Billing Provider: JAMES SEO MD Common Visit Codes: [id number] INP/OBS CARE(HIGH) JAMES SEO MD May 03, 2025 10:06
[2025-05-03] MEDS: FUROSEMIDE 20 MG/2 ML VIAL IV SCH (10:49)
--- NOTE | 2025-05-03 11:48 | DVHINCON2 ---
Date Seen: May 03, 2025 Referring Physician MD Michell Reason for Consultation CHF History of Present Illness This is a 70-year-old female patient who presents to emergency room with chief complaint of chills, shortness of breath, cough, and chest pain. The patient reports that symptoms began on 04/29/2025 while on a plane ride back from [place]. She describes her chest pain as provoked by coughing, intermittent, a redd in nature, left-sided with radiation to her back. Associated symptoms include shortness of breath, chills, and cough. She also reports experiencing fevers at home prior to emergency room arrival. Initial twelve lead electrocardiogram seen in patient's hard chart reveals a normal sinus rhythm without any significant ST segment changes. Initial troponin level of 100ng/L with flat trend thereafter. Initial BNP level of 187.83pg/mL. Significant past medical history includes hypertension, dyslipidemia, thyroid disease, asthma, breast cancer status post left lumpectomy and radiation therapy, and obesity. The patient does not see a large engine assembler in the outpatient setting and denies any previous cardiac issues. Past Medical History Past medical history reviewed. No other significant than mentioned above. Past Surgical History Left breast lumpectomy Tendon repair in left finger Family History Family history reviewed. Social History Denies the use of tobacco, alcohol or illicit drugs. Allergies: Coded Allergies: NO KNOWN ALLERGIES (Unverified , 05/01/25) Home Meds Reported Medications Lisinopril & Hydrochlorothiazi (Lisinopril/Hydrochlorothi) 1 Tab Tab, 1 TAB PO DAILY for 100 Days, #200 [LISINOPRIL/HYDROCHLOROTHIAZIDE 20/25 MG TABLET] 05/02/25 Levothyroxine Sodium (Levothyroxine Sodium) 100 Mcg Tab, 1 TAB PO DAILY for 100 Days, #100 05/02/25 Tamoxifen Citrate (Tamoxifen Citrate) 20 Mg Tab, 1 TAB PO DAILY for 100 Days, #100 05/02/25 Atorvastatin Calcium (ATORVASTATIN CALCIUM) 20 Mg Tab, 1 TAB PO DAILY for 100 Days, #100 05/02/25 Home Meds Home medications reviewed. Current Medications Current Medications Medications (Trade) Dose Ordered Sig/Magy Route PRN Reason Start Time Stop Time Status Last Admin Ceftriaxone Sodium 50 ml @ 100 mls/hr DAILY@09 IV 05/02/25 16:00 05/03/25 10:04 DC 05/03/25 09:20 Doxycycline Hyclate 100 ml @ 50 mls/hr Q12HR IV 05/02/25 12:30 05/03/25 10:04 DC 05/02/25 21:45 Levofloxacin/ Dextrose 100 ml @ 100 mls/hr DAILY IV 05/03/25 10:00 UNV Furosemide (Lasix Injection) 20 mg DAILY IV 05/03/25 10:00 05/03/25 10:49 Levofloxacin 50 ml @ 50 mls/hr DAILY IV 05/04/25 10:00 Review of Systems Constitutional: Generalized weakness, chills Ears, Nose, & Throat: No symptom reported Eyes: No symptom reported Neurological: No symptoms reported Pulmonary/Respiratory: Cough, shortness of breath Cardiovascular: Chest pain Gastrointestinal: No symptom reported Genitourinary: No symptom reported Musculoskeletal: No symptom reported Skin: No symptom reported Psychiatric: No symptom reported Endocrine: No symptom reported Hematologic/Lymphatic: No symptom reported Vital Signs Vital Signs Date Time Temp Pulse Resp B/P (MAP) Pulse Ox O2 Delivery O2 Flow Rate FiO2 05/03/25 10:49 114/49 05/03/25 10:00 98 Nasal Cannula 2.0 05/03/25 10:00 28 05/03/25 09:03 99.2 86 23 99.2 Physical Exam General Appearance: Cooperative. Well-developed. Well-nourished. No acute distress. Pulmonary/Respiratory: Clear, bilateral breaths sounds. Cardiovascular/Chest: Regular rate and rhythm. Peripheral Pulses: 2+ Radial (R). 2+ Radial (L). 2+ Pedal (R). 2+ Pedal (L) Abdominal Exam: Normal bowel sounds. Ankle Exam: Negative ankle edema Lower extremities: Negative lower extremity edema Neuro/Mental Status: A/OX4, coherent. Thoughts/Psych: Normal thought pattern. Appropriate mood and affect. Good judgment and insight. Appearance: No acute distress. Skin Exam: Normal inspection. Normal color. Warm and dry. Labs/Diagnostic Data Labs Test 05/03/25 06:07 05/03/25 05:20 05/02/25 05:56 05/01/25 22:30 Range/Units POC Glucose 105 70-106 mg/dl White Blood Count 6.8 4.4-10.8 10^3/uL Red Blood Count 2.99 L 4.0-5.20 10^6/uL Hemoglobin 9.6 L 12.2-16.2 g/dL Hematocrit 28.9 L 36.0-46.0 % Mean Corpuscular Volume 96.8 # 80.0-100.0 fL Mean Corpuscular Hemoglobin 32.2 H 28.0-32.0 pg Mean Corpuscular Hemoglobin Concent 33.3 32.0-36.0 g/dL Red Cell Distribution Width 13.3 11.8-14.3 % Platelet Count 180 140-450 10^3/uL Mean Platelet Volume 7.3 6.9-10.8 fL Neutrophils (%) (Auto) 65.6 37.0-80.0 % Lymphocytes (%) (Auto) 22.7 10.0-50.0 % Monocytes (%) (Auto) 11.3 0.0-12.0 % Eosinophils (%) (Auto) 0.0 0.0-7.0 % Basophils (%) (Auto) 0.4 0.0-2.0 % Neutrophils # (Auto) 4.4 1.6-8.6 10 ^3/uL Lymphocytes # (Auto) 1.5 0.4-5.4 10 ^3/uL Monocytes # (Auto) 0.8 0-1.3 10 ^3/uL Eosinophils # (Auto) 0 0-0.8 10 ^3/uL Basophils # (Auto) 0 0-0.2 10 ^3/uL Nucleated Red Blood Cells 0.1 % Sodium Level 137 # 136-145 mmol/L Potassium Level 4.1 3.5-5.1 mmol/L Chloride Level 103 98-107 mmol/L Carbon Dioxide Level 23 20-31 mmol/L Anion Gap 11 5-15 Blood Urea Nitrogen 12 9-23 mg/dL Creatinine 1.26 H 0.550-1.02 mg/dL Glomerular Filtration Rate Calc 46 >90 mL/min BUN/Creatinine Ratio 9.5 L 10.0-20.0 Serum Glucose 97 74-106 mg/dL Calcium Level 8.2 L 8.7-10.4 mg/dL Magnesium Level 1.9 1.6-2.6 mg/dL Erythrocyte Sedimentation Rate 20 0-20 mm/hr Prothrombin Time 11.0 9.3-11.8 sec Prothrombin Time INR 1.04 0.9-1.15 Activated Partial Thromboplast Time 27.7 24.5-34.5 SEC Total Bilirubin 0.4 0.2-1.0 mg/dL Aspartate Amino Transferase (AST) 32 13-40 U/L Alanine Aminotransferase (ALT) 28 7-40 U/L Alkaline Phosphatase 44 L 46-116 U/L C-Reactive Protein High Sensitivity 0.58 <1.0 mg/dL Total Protein 6.7 5.7-8.2 g/dL Albumin 4.1 3.2-4.8 g/dL Influenza Type A Antigen Negative Negative Influenza Type B Antigen Negative Negative SARS-CoV-2 Antigen (Rapid) Negative NEGATIVE Test 05/01/25 22:15 05/01/25 19:52 05/01/25 17:43 05/01/25 17:09 Range/Units Lactic Acid Level 1.2 0.4-2.0 mmol/L Troponin I High Sensitivity 123 *H </=34 ng/L Phosphorus Level 2.8 2.4-5.1 mg/dL Direct Bilirubin < 0.1 <0.3 mg/dL Triglycerides Level 220 H < 150 mg/dL Cholesterol Level 102 < 200 mg/dL LDL Cholesterol 40 < 100 mg/dL HDL Cholesterol 38 L 40-59 mg/dL Urine Color Colorless Yellow Urine Clarity Clear Clear Urine pH 5.5 5.0-9.0 Urine Specific [place] 1.014 1.001-1.035 Urine Protein Negative Negative Urine Ketones Negative Negative Urine Blood Negative Negative /uL Urine Nitrite Negative Negative Urine Bilirubin Negative Negative Urine Urobilinogen Normal Negative mg/dL Urine Leukocyte Esterase Negative Negative /uL Urine RBC <1 0 - 4 /hpf Urine Microscopic WBC 1 0-5 /HPF Urine Squamous Epithelial Cells Few <5 /hpf Urine Bacteria None seen None Seen /hpf Urine Glucose Normal Normal mg/dL Urine Opiates Screen Neg NEGATIVE Urine Fentanyl Screen Neg NEGATIVE Urine Barbiturates Screen Neg NEGATIVE Urine Phencyclidine Screen Neg NEGATIVE Urine Amphetamines Screen Neg NEGATIVE Urine Benzodiazepines Screen Neg NEGATIVE Urine Cocaine Screen Neg NEGATIVE Urine Cannabinoids Screen Neg NEGATIVE Test 05/01/25 16:49 Range/Units D-Dimer, Quantitative 1.80 H 0.0-0.49 mg/L FEU Hemoglobin A1c 6.0 H <5.7 % A1C B-Type Natriuretic Peptide 187.83 0-100 pg/mL Vitamin B12 Level 397 211-911 pg/mL Vitamin D 25-Hydroxy 31.7 30.0-100 ng/mL Thyroid Stimulating Hormone (TSH) 3.81 0.55-4.78 uIU/mL Microbiology Date/Time Source Procedure Growth Status 05/01/25 22:18 Blood Blood Culture - Preliminary NO GROWTH AFTER 24 HOURS OF INCUBATION. Resulted Assessment NSTEMI, likely type 2 Pleuritic chest pain Hypertension Dyslipidemia Pneumonia Thyroid disease Asthma History of breast cancer status post lumpectomy and radiation Plan/Recommendation We will continue with the following plan/recommendations (Dr. Ruiz): Case discussed with . MD reviewed echocardiogram which reveals an EF of approximately 65% with hyperdynamic LV noted. [place] heart failure diagnostic criteria: Negative. The patient persists with cough, pyrexia, and generalized weakness. Symptoms likely in keeping with infectious disease process. There is no further inpatient cardiac workup indicated at this time. Thank you for allowing us to care for this patient. Please call with any questi ons or concerns. Critical care time spent: 44 minutes This medical document was created using an electronic medical record system with voice recognition software and computerized dictation system. Although this document has been carefully reviewed, there might still be some phonetic and typographical errors. Occasional wrong-word or ``sound-alike substitutions may have occurred due to the inherent limitations of voice recognition software. These areas are purely typographical due to imperfections of the software programs and do not reflect any compromise in the patient's medical care. Please read the chart carefully and recognize, using context, where these substitutions have occurred. Plan discussed with: Patient NYHA Physical activity limitations: NA Date of Service: May 03, 2025 Billing Provider: SHANE BENAVIDES Cardiology Common Codes: [id number] INP/OBS CARE (High) Cardiology Consultation Codes: [id number] CONSULT <45MIN SHANE BENAVIDES May 03, 2025 11:48
--- NOTE | 2025-05-03 17:35 | DVHSR ---
APPROVED REPORT EXAM: Two-dimensional and M-mode echocardiogram with Doppler and color Doppler. Blood Pressure: 118/69 mmHg INDICATION NSTEMI RISK FACTORS Obesity: Height: 5'2", Weight: 197 DIMENSIONS LVDd4.4 (3.8-5.7cm)LA (2D)4.0 (1.9-4.0cm)Aortic Root3.2 (2.0-3.7cm) LVDs3.0 (2.5-4.0cm)LA (MM) (1.9-4.0cm)Aortic Cusp Exc1.7 (1.5-2.0cm) EF (%) 60.0 (55-70%)Rt. Atrium3.5 (1.9-4.0cm)Asc. Aorta cm IVSd1.2 (0.7-1.1cm)RV (D) (1.8-2.4cm) PWd1.1 (0.7-1.1cm) Mitral Valve MitralMitral Stenosis E wave1.14m/sMV Mean GR.mmHg A wave1.29m/sMV Peak GR.mmHg E/A ratio0.92D MVAcm2 DECEL [id number] 1/2 [place] Aortic Valve Aortic ValveAortic Stenosis V11.21m/[place] Mean GR.7mmHg V21.86m/[place] Peak GR.14mmHg LVOT Diameter1.7 (1.8-2.4cm)Doppler AVA1.48cm2 Pulmonic Valve V21.24m/s Tricuspid Valve TR Velocity2.46m/s [id number] Other Information Technically limited study due to body habitus. Conclusion Technically limited study. Limited acoustic windows. Underlying tachycardia. Left atrial enlargement with concentric LVH. Valves are normal. EF of 65% with normal RV function. Hyperdynamic LV noted. Normal functioning right ventricle. Dopplers unremarkable. No pericardial effusion masses or vegetations discernible. Difficult endocardial structures. [place] te visualization not possible.
[2025-05-04] VITALS (19 sets, daily range): BP systolic 116–143; BP diastolic 62–79; PULSE 84–105; RESP 17–20; TEMP 97.8–100.8; O2SAT 97–100
[2025-05-04 05:29] LABS: Hematocrit 30.9 % (36.0-46.0); Hemoglobin 10.6 g/dL (12.2-16.2); Mean Corpuscular Hemoglobin 32.0 pg (28.0-32.0); Mean Corpuscular Volume 93.6 fL (80.0-100.0); Nucleated Red Blood Cells % 0.1 %
[2025-05-04 05:48] LABS: Alanine Aminotransferase 25 U/L (7-40); Albumin 4.0 g/dL (3.2-4.8); Anion Gap 11 (5-15); BUN/Creatinine Ratio 12.2 (10.0-20.0); Bilirubin, Total 0.3 mg/dL (0.2-1.0); Blood Urea Nitrogen 16 mg/dL (9-23); Carbon Dioxide 25 mmol/L (20-31); Chloride 99 mmol/L (98-107); Glucose 102 mg/dL (74-106); Magnesium 1.7 mg/dL (1.6-2.6); Potassium 4.0 mmol/L (3.5-5.1); Total Protein 6.9 g/dL (5.7-8.2)
[2025-05-04 05:52] LABS: Iron 26.0 ug/dL (50-170); Total Iron Binding Capacity 208.0 ug/dL (250-425)
[2025-05-04 05:53] LABS: Alkaline Phosphatase 42 U/L (46-116); Calcium 8.4 mg/dL (8.7-10.4); Sodium 135 mmol/L (136-145)
[2025-05-04] MEDS: LOPERAMIDE HCL 2 MG CAP/TAB PO PRN (17:25)
--- NOTE | 2025-05-04 21:07 | DVHPN2 ---
Subjective The patient seen and examined at bedside. Minimal SOB. Wanted to know about her echo. Reviewed: Care Plan, H&P, Labs, Medications, Previous Orders, Radiology Changes from previous H/P or p: No Changes Objective Vitals Vital Signs Date Time Temp Pulse Resp B/P (MAP) Pulse Ox O2 Delivery O2 Flow Rate FiO2 05/04/25 18:31 93 18 100 05/04/25 18:23 Room Air 0.0 05/04/25 18:23 21 05/04/25 16:55 97.8 117/62 (80) 97.8 Intake/Output Intake and Output 05/04/25 07:00 Intake Total 1710 ml Balance 1710 ml Intake Oral 1710 ml # Voids 12 # Bowel Movements 2 General Appearance: Alert, Oriented X3, Cooperative, No acute distress HEENT: Atraumatic, PERRLA, EOMI, Mucous membr. moist/pink Neck: Supple Lungs: Clear to auscultation, Normal air movement Cardiovascular: Regular rate, Normal S1, Normal S2, No murmurs, Gallops, Rubs Abdomen: Normal bowel sounds, Soft, No tenderness Neuro: Cranial nerves 3-12 NL Psych/Mental Status: Mental status NL Medications Current Medications Medications Dose Ordered Sig/Magy Route Start Time Stop Time Status Last Admin Dose Admin Acetaminophen 325 mg Q4HP PRN PO 05/01/25 21:00 05/04/25 19:57 325 MG Morphine Sulfate 2 mg Q4HPRN PRN IV 05/01/25 21:45 05/02/25 18:41 2 MG Nitroglycerin 0.4 mg Q5MINP PRN SL 05/01/25 21:00 Morphine Sulfate 2 mg Q30M PRN IV 05/01/25 21:00 Aspirin 81 mg DAILY PO 05/02/25 10:00 05/04/25 10:05 81 MG Atorvastatin Calcium 40 mg HS PO 05/01/25 22:00 05/03/25 21:04 40 MG Levalbuterol HCl 0.625 mg Q6HR NEB 05/02/25 00:00 05/04/25 18:23 0.625 MG Guaifenesin/ Codeine Phosphate 5 ml Q4HPRN PRN PO 05/01/25 21:45 05/04/25 19:57 5 ML Levothyroxine Sodium 25 mcg QAM@0600 PO 05/02/25 06:00 05/04/25 05:52 25 MCG Ipratropium [place] 0.5 mg Q6HR NEB 05/02/25 00:00 05/04/25 18:23 0.5 MG Diagnostic Test (Pha) 1 strip ACHS 05/02/25 07:00 05/04/25 17:42 1 STRIP Insulin Human Regular ACHS SC 05/02/25 07:00 05/03/25 21:08 2 UNITS Dextrose 50 ml UD PRN IV 05/01/25 23:30 Levofloxacin/ Dextrose 100 ml @ 100 mls/hr DAILY IV 05/03/25 10:00 UNV Furosemide 20 mg DAILY IV 05/03/25 10:00 05/04/25 10:04 20 MG Levofloxacin 50 ml @ 50 mls/hr DAILY IV 05/04/25 10:00 05/04/25 10:05 50 MLS/HR Loperamide HCl 2 mg PRN PRN PO 05/04/25 16:15 05/04/25 17:25 2 MG Laboratory Results Laboratory Tests 05/04/25 05:05 Chemistry Test 05/04/25 05:05 Albumin 4.0 g/dL (3.2-4.8) Calcium Level 8.4 mg/dL (8.7-10.4) L Magnesium Level 1.7 mg/dL (1.6-2.6) Total Protein 6.9 g/dL (5.7-8.2) LFT Test 05/04/25 05:05 Alanine Aminotransferase (ALT) 25 U/L (7-40) Alkaline Phosphatase 42 U/L (46-116) L Aspartate Amino Transferase (AST) 42 U/L (13-40) H Total Bilirubin 0.3 mg/dL (0.2-1.0) Urinalysis Test 05/01/25 17:09 Urine Color Colorless (Yellow) Urine Clarity Clear (Clear) Urine pH 5.5 (5.0-9.0) Urine Specific [place] 1.014 (1.001-1.035) Urine Protein Negative (Negative) Urine Ketones Negative (Negative) Urine Blood Negative /uL (Negative) Urine Nitrite Negative (Negative) Urine Bilirubin Negative (Negative) Urine Urobilinogen Normal mg/dL (Negative) Urine Leukocyte Esterase Negative /uL (Negative) Urine RBC <1 /hpf (0 - 4) Urine Microscopic WBC 1 /HPF (0-5) Urine Squamous Epithelial Cells Few /hpf (<5) Urine Bacteria None seen /hpf (None Seen) Urine Glucose Normal mg/dL (Normal) Microbiology Microbiology Date/Time Source Procedure Growth Status 05/01/25 22:18 Blood Blood Culture - Preliminary NO GROWTH AFTER 48 HOURS OF INCUBATION. Resulted Labs and/or images reviewed: Labs reviewed by me Assessment/Plan Assessment/Plan #1 pneumonia- gram positive/neg with sepsis: iv antibiotics levaquin, legionella still pending #2 nstemi: cardio evaluation. will follow up echo #3 ?acute systolic/diastolic heart failure: continue lasix iv #4 h/o breast cancer #5 obesity #6 htn #7 hyperlipidemia #8 asthma #9 hypothyroidism: cont meds #10 acute resp failure: cont oxygen unstable for transfer Plan discussed with: Patient My Orders Orders - WILLEM HANSEN MD Procedure Category Date Status Time Loperamide Capsule PHA 05/04/25 In Process (Imodium Capsule) 16:15 Date of Service: May 04, 2025 Billing Provider: WILLEM HANSEN MD Common Visit Codes: [id number] INP/OBS CARE(HIGH) WILLEM HANSEN MD May 04, 2025 21:07
[2025-05-05] VITALS (18 sets, daily range): BP systolic 101–133; BP diastolic 56–79; PULSE 88–102; RESP 12–18; TEMP 98.5–100.1; O2SAT 90–100
--- NOTE | 2025-05-05 14:58 | DVHPN2 ---
Subjective The patient seen and examined at bedside. Minimal SOB. Wanted to go home today. Legionella still pending. Reviewed: Care Plan, H&P, Labs, Medications, Previous Orders, Radiology Changes from previous H/P or p: No Changes Objective Vitals Vital Signs Date Time Temp Pulse Resp B/P (MAP) Pulse Ox O2 Delivery O2 Flow Rate FiO2 05/05/25 12:42 99.3 88 17 115/56 (75) 100 99.3 05/05/25 11:44 Room Air* 0 21 Intake/Output Intake and Output 05/05/25 07:00 Intake Total 1180 ml Balance 1180 ml Intake Oral 1180 ml # Voids 12 # Bowel Movements 7 General Appearance: Alert, Oriented X3, Cooperative, No acute distress HEENT: Atraumatic, PERRLA, EOMI, Mucous membr. moist/pink Neck: Supple Lungs: Clear to auscultation, Normal air movement Cardiovascular: Regular rate, Normal S1, Normal S2, No murmurs, Gallops, Rubs Abdomen: Normal bowel sounds, Soft, No tenderness Neuro: Cranial nerves 3-12 NL Psych/Mental Status: Mental status NL Medications Current Medications Medications Dose Ordered Sig/Magy Route Start Time Stop Time Status Last Admin Dose Admin Acetaminophen 325 mg Q4HP PRN PO 05/01/25 21:00 05/05/25 04:08 325 MG Morphine Sulfate 2 mg Q4HPRN PRN IV 05/01/25 21:45 05/02/25 18:41 2 MG Nitroglycerin 0.4 mg Q5MINP PRN SL 05/01/25 21:00 Morphine Sulfate 2 mg Q30M PRN IV 05/01/25 21:00 Aspirin 81 mg DAILY PO 05/02/25 10:00 05/05/25 09:01 81 MG Atorvastatin Calcium 40 mg HS PO 05/01/25 22:00 05/04/25 21:18 40 MG Levalbuterol HCl 0.625 mg Q6HR NEB 05/02/25 00:00 05/05/25 11:43 0.625 MG Guaifenesin/ Codeine Phosphate 5 ml Q4HPRN PRN PO 05/01/25 21:45 05/05/25 04:08 5 ML Levothyroxine Sodium 25 mcg QAM@0600 PO 05/02/25 06:00 05/05/25 06:15 25 MCG Ipratropium [place] 0.5 mg Q6HR NEB 05/02/25 00:00 05/05/25 11:44 0.5 MG Diagnostic Test (Pha) 1 strip ACHS 05/02/25 07:00 05/05/25 11:17 1 STRIP Insulin Human Regular ACHS SC 05/02/25 07:00 05/03/25 21:08 2 UNITS Dextrose 50 ml UD PRN IV 05/01/25 23:30 Levofloxacin/ Dextrose 100 ml @ 100 mls/hr DAILY IV 05/03/25 10:00 UNV Furosemide 20 mg DAILY IV 05/03/25 10:00 05/05/25 09:00 20 MG Levofloxacin 50 ml @ 50 mls/hr DAILY IV 05/04/25 10:00 05/05/25 09:01 50 MLS/HR Loperamide HCl 2 mg PRN PRN PO 05/04/25 16:15 05/05/25 04:08 2 MG Laboratory Results Laboratory Tests 05/04/25 05:05 Urinalysis Test 05/01/25 17:09 Urine Color Colorless (Yellow) Urine Clarity Clear (Clear) Urine pH 5.5 (5.0-9.0) Urine Specific [place] 1.014 (1.001-1.035) Urine Protein Negative (Negative) Urine Ketones Negative (Negative) Urine Blood Negative /uL (Negative) Urine Nitrite Negative (Negative) Urine Bilirubin Negative (Negative) Urine Urobilinogen Normal mg/dL (Negative) Urine Leukocyte Esterase Negative /uL (Negative) Urine RBC <1 /hpf (0 - 4) Urine Microscopic WBC 1 /HPF (0-5) Urine Squamous Epithelial Cells Few /hpf (<5) Urine Bacteria None seen /hpf (None Seen) Urine Glucose Normal mg/dL (Normal) Microbiology Microbiology Date/Time Source Procedure Growth Status 05/01/25 22:18 Blood Blood Culture - Preliminary NO GROWTH AFTER 72 HOURS OF INCUBATION. Resulted Labs and/or images reviewed: Labs reviewed by me Assessment/Plan Assessment/Plan #1 pneumonia- gram positive/neg with sepsis: iv antibiotics levaquin, legionella still pending #2 nstemi: cardio evaluation. will follow up echo #3 ?acute systolic/diastolic heart failure: continue lasix iv #4 h/o breast cancer #5 obesity #6 htn #7 hyperlipidemia #8 asthma #9 hypothyroidism: cont meds #10 acute resp failure: cont oxygen unstable for transfer DW in length with patient Advise to stay since she still hypoxic, when I take oxygen off patient desat to 89% She agree to stay until tomorrow. Plan discussed with: Patient, Spouse, Son My Orders Orders - WILLEM HANSEN MD Procedure Category Date Status Time Loperamide Capsule PHA 05/04/25 In Process (Imodium Capsule) 16:15 Date of Service: May 05, 2025 Billing Provider: WILLEM HANSEN MD Common Visit Codes: [id number] INP/OBS CARE(HIGH) WILLEM HANSEN MD May 05, 2025 14:58
[2025-05-05] MEDS ORDERED: LEVO500T91 PO (16:34)
--- NOTE | 2025-05-05 16:36 | DVHDS2 ---
Discharge Summary Date of Admission May 01, 2025 at 20:59 Date of Discharge: May 05, 2025 Labs/Diagnostic Data: Laboratory Results Test 05/05/25 06:13 05/04/25 05:05 05/03/25 05:20 05/02/25 05:56 POC Glucose 94 mg/dl (70-106) White Blood Count 7.5 10^3/uL (4.4-10.8) Red Blood Count 3.30 10^6/uL (4.0-5.20) Hemoglobin 10.6 g/dL (12.2-16.2) Hematocrit 30.9 % (36.0-46.0) Mean Corpuscular Volume 93.6 fL (80.0-100.0) Mean Corpuscular Hemoglobin 32.0 pg (28.0-32.0) Mean Corpuscular Hemoglobin Concent 34.1 g/dL (32.0-36.0) Red Cell Distribution Width 13.1 % (11.8-14.3) Platelet Count 197 10^3/uL (140-450) Mean Platelet Volume 7.4 fL (6.9-10.8) Neutrophils (%) (Auto) 67.2 % (37.0-80.0) Lymphocytes (%) (Auto) 23.4 % (10.0-50.0) Monocytes (%) (Auto) 9.0 % (0.0-12.0) Eosinophils (%) (Auto) 0.0 % (0.0-7.0) Basophils (%) (Auto) 0.4 % (0.0-2.0) Neutrophils # (Auto) 5.0 10 ^3/uL (1.6-8.6) Lymphocytes # (Auto) 1.8 10 ^3/uL (0.4-5.4) Monocytes # (Auto) 0.7 10 ^3/uL (0-1.3) Eosinophils # (Auto) 0 10 ^3/uL (0-0.8) Basophils # (Auto) 0 10 ^3/uL (0-0.2) Nucleated Red Blood Cells 0.1 % Sodium Level 135 mmol/L (136-145) Potassium Level 4.0 mmol/L (3.5-5.1) Chloride Level 99 mmol/L (98-107) Carbon Dioxide Level 25 mmol/L (20-31) Anion Gap 11 (5-15) Blood Urea Nitrogen 16 mg/dL (9-23) Creatinine 1.31 mg/dL (0.550-1.02) Glomerular Filtration Rate Calc 44 mL/min (>90) BUN/Creatinine Ratio 12.2 (10.0-20.0) Serum Glucose 102 mg/dL (74-106) Calcium Level 8.4 mg/dL (8.7-10.4) Magnesium Level 1.7 mg/dL (1.6-2.6) Iron Level 26 ug/dL (50-170) Total Iron Binding Capacity 208 ug/dL (250-425) Percent Iron Saturation 12.5 % (15-50) Ferritin 1368.2 ng/mL (10-291) Total Bilirubin 0.3 mg/dL (0.2-1.0) Aspartate Amino Transferase (AST) 42 U/L (13-40) Alanine Aminotransferase (ALT) 25 U/L (7-40) Alkaline Phosphatase 42 U/L (46-116) Total Protein 6.9 g/dL (5.7-8.2) Albumin 4.0 g/dL (3.2-4.8) Erythrocyte Sedimentation Rate 20 mm/hr (0-20) Prothrombin Time 11.0 sec (9.3-11.8) Prothrombin Time INR 1.04 (0.9-1.15) Activated Partial Thromboplast Time 27.7 SEC (24.5-34.5) C-Reactive Protein High Sensitivity 0.58 mg/dL (<1.0) Test 05/01/25 22:30 05/01/25 22:15 05/01/25 19:52 05/01/25 17:43 Influenza Type A Antigen Negative (Negative) Influenza Type B Antigen Negative (Negative) SARS-CoV-2 Antigen (Rapid) Negative (NEGATIVE) Lactic Acid Level 1.2 mmol/L (0.4-2.0) Troponin I High Sensitivity 123 ng/L (</=34) Phosphorus Level 2.8 mg/dL (2.4-5.1) Direct Bilirubin < 0.1 mg/dL (<0.3) Triglycerides Level 220 mg/dL (< 150) Cholesterol Level 102 mg/dL (< 200) LDL Cholesterol 40 mg/dL (< 100) HDL Cholesterol 38 mg/dL (40-59) Test 05/01/25 17:09 05/01/25 16:49 Urine Color Colorless (Yellow) Urine Clarity Clear (Clear) Urine pH 5.5 (5.0-9.0) Urine Specific [place] 1.014 (1.001-1.035) Urine Protein Negative (Negative) Urine Ketones Negative (Negative) Urine Blood Negative /uL (Negative) Urine Nitrite Negative (Negative) Urine Bilirubin Negative (Negative) Urine Urobilinogen Normal mg/dL (Negative) Urine Leukocyte Esterase Negative /uL (Negative) Urine RBC <1 /hpf (0 - 4) Urine Microscopic WBC 1 /HPF (0-5) Urine Squamous Epithelial Cells Few /hpf (<5) Urine Bacteria None seen /hpf (None Seen) Urine Glucose Normal mg/dL (Normal) Urine Opiates Screen Neg (NEGATIVE) Urine Fentanyl Screen Neg (NEGATIVE) Urine Barbiturates Screen Neg (NEGATIVE) Urine Phencyclidine Screen Neg (NEGATIVE) Urine Amphetamines Screen Neg (NEGATIVE) Urine Benzodiazepines Screen Neg (NEGATIVE) Urine Cocaine Screen Neg (NEGATIVE) Urine Cannabinoids Screen Neg (NEGATIVE) D-Dimer, Quantitative 1.80 mg/L FEU (0.0-0.49) Hemoglobin A1c 6.0 % A1C (<5.7) B-Type Natriuretic Peptide 187.83 pg/mL (0-100) Vitamin B12 Level 397 pg/mL (211-911) Vitamin D 25-Hydroxy 31.7 ng/mL (30.0-100) Thyroid Stimulating Hormone (TSH) 3.81 uIU/mL (0.55-4.78) Other Laboratory Tests 05/04/25 05:05 Final Diagnosis/Problems List PNA Discharge Disposition: Home Discharge Instruct/Medications Diet: Regular Activity: No Restrictions, As Tolerated Follow Up/Referral: pcp 1-2 weeks Medications: resume home meds Levaquin 500mg PO daily x 14 days Scheduled Atorvastatin Calcium (Atorvastatin Calcium), 1 TAB PO DAILY, (Reported) Levofloxacin Hemihydrate (Levaquin 500 Mg), 1 TAB PO DAILY Levothyroxine Sodium (Levothyroxine Sodium), 1 TAB PO DAILY, (Reported) Lisinopril & Hydrochlorothiazi (Lisinopril/Hydrochlorothi), 1 TAB PO DAILY, (Reported) Tamoxifen Citrate (Tamoxifen Citrate), 1 TAB PO DAILY, (Reported) Discharge Statement: "Patient was advised to return to the ER or call 911 if any headaches, dizziness, shortness of breath, chest pain, abdominal pain, bleeding, fevers, or worsening of medical condition. Patient was counseled about treatment plan, medications, possible side effects, patientverbalized understanding. All questions were answered to the best of my ability. This discharge took greater then 30 minutes in planning, reviewing documentation, counseling the patient, and discussing with other team members." ASSESSMENT ASSESSMENT Assessment PNA WILLEM HANSEN MD May 05, 2025 16:36
[2025-05-06] VITALS (17 sets, daily range): BP systolic 95–115; BP diastolic 51–66; PULSE 79–97; RESP 17–20; TEMP 97.6–99.1; O2SAT 90–100
[2025-05-06 07:49] LABS: Hematocrit 30.8 % (36.0-46.0); Hemoglobin 10.5 g/dL (12.2-16.2); Mean Corpuscular Hemoglobin 31.9 pg (28.0-32.0); Mean Corpuscular Volume 93.3 fL (80.0-100.0); Nucleated Red Blood Cells % 0.2 %
[2025-05-06 08:01] LABS: Potassium 3.8 mmol/L (3.5-5.1)
[2025-05-06 08:02] LABS: Anion Gap 10 (5-15); Carbon Dioxide 27 mmol/L (20-31)
[2025-05-06 08:06] LABS: Calcium 8.0 mg/dL (8.7-10.4); Chloride 96 mmol/L (98-107); Sodium 133 mmol/L (136-145)
[2025-05-06 08:08] LABS: BUN/Creatinine Ratio 15.0 (10.0-20.0); Blood Urea Nitrogen 22 mg/dL (9-23); Glucose 113 mg/dL (74-106)
--- NOTE | 2025-05-06 13:06 | DVHPN2 ---
Subjective The patient seen and examined at bedside. Legionella still pending. Still complains of shortness of breath. We tried to wean patient off oxygen but unsuccessful. Every time we take her off oxygen, she desat to 80% Reviewed: Care Plan, H&P, Labs, Medications, Previous Orders, Radiology Changes from previous H/P or p: No Changes General: Per HPI Objective Vitals Vital Signs Date Time Temp Pulse Resp B/P (MAP) Pulse Ox O2 Delivery O2 Flow Rate FiO2 05/06/25 11:38 81 18 99 05/06/25 11:31 Nasal Cannula* 2 28 05/06/25 09:44 129/58 05/06/25 05:00 99.1 99.1 Intake/Output Intake and Output 05/06/25 07:00 Intake Total 1400 ml Balance 1400 ml Intake Oral 1350 ml IV Total 50 ml # Voids 13 # Bowel Movements 10 General Appearance: Alert, Oriented X3, Cooperative, No acute distress HEENT: Atraumatic, PERRLA, EOMI, Mucous membr. moist/pink Neck: Supple Lungs: Clear to auscultation, Normal air movement Cardiovascular: Regular rate, Normal S1, Normal S2, No murmurs, Gallops, Rubs Abdomen: Normal bowel sounds, Soft, No tenderness Neuro: Cranial nerves 3-12 NL Psych/Mental Status: Mental status NL Medications Current Medications Medications Dose Ordered Sig/Magy Route Start Time Stop Time Status Last Admin Dose Admin Acetaminophen 325 mg Q4HP PRN PO 05/01/25 21:00 05/06/25 12:08 325 MG Morphine Sulfate 2 mg Q4HPRN PRN IV 05/01/25 21:45 05/02/25 18:41 2 MG Nitroglycerin 0.4 mg Q5MINP PRN SL 05/01/25 21:00 Morphine Sulfate 2 mg Q30M PRN IV 05/01/25 21:00 Aspirin 81 mg DAILY PO 05/02/25 10:00 05/06/25 09:43 81 MG Atorvastatin Calcium 40 mg HS PO 05/01/25 22:00 05/05/25 21:57 40 MG Levalbuterol HCl 0.625 mg Q6HR NEB 05/02/25 00:00 05/06/25 11:31 0.625 MG Guaifenesin/ Codeine Phosphate 5 ml Q4HPRN PRN PO 05/01/25 21:45 05/06/25 12:07 5 ML Levothyroxine Sodium 25 mcg QAM@0600 PO 05/02/25 06:00 05/05/25 06:15 25 MCG Ipratropium [place] 0.5 mg Q6HR NEB 05/02/25 00:00 05/06/25 11:29 0.5 MG Diagnostic Test (Pha) 1 strip ACHS 05/02/25 07:00 05/06/25 11:11 1 STRIP Insulin Human Regular ACHS SC 05/02/25 07:00 05/03/25 21:08 2 UNITS Dextrose 50 ml UD PRN IV 05/01/25 23:30 Levofloxacin/ Dextrose 100 ml @ 100 mls/hr DAILY IV 05/03/25 10:00 UNV Furosemide 20 mg DAILY IV 05/03/25 10:00 05/06/25 09:44 20 MG Levofloxacin 50 ml @ 50 mls/hr DAILY IV 05/04/25 10:00 05/06/25 09:43 50 MLS/HR Loperamide HCl 2 mg PRN PRN PO 05/04/25 16:15 05/06/25 09:45 2 MG Laboratory Results Laboratory Tests 05/06/25 05:30 Chemistry Test 05/06/25 05:30 Calcium Level 8.0 mg/dL (8.7-10.4) L Urinalysis Test 05/01/25 17:09 Urine Color Colorless (Yellow) Urine Clarity Clear (Clear) Urine pH 5.5 (5.0-9.0) Urine Specific [place] 1.014 (1.001-1.035) Urine Protein Negative (Negative) Urine Ketones Negative (Negative) Urine Blood Negative /uL (Negative) Urine Nitrite Negative (Negative) Urine Bilirubin Negative (Negative) Urine Urobilinogen Normal mg/dL (Negative) Urine Leukocyte Esterase Negative /uL (Negative) Urine RBC <1 /hpf (0 - 4) Urine Microscopic WBC 1 /HPF (0-5) Urine Squamous Epithelial Cells Few /hpf (<5) Urine Bacteria None seen /hpf (None Seen) Urine Glucose Normal mg/dL (Normal) Microbiology Microbiology Date/Time Source Procedure Growth Status 05/01/25 22:18 Blood Blood Culture - Preliminary NO GROWTH AFTER 72 HOURS OF INCUBATION. Resulted Labs and/or images reviewed: Labs reviewed by me Assessment/Plan Assessment/Plan #1 pneumonia- gram positive/neg with sepsis: iv antibiotics levaquin, legionella still pending #2 nstemi: cardio evaluation. will follow up echo #3 ?acute systolic/diastolic heart failure: continue lasix iv #4 h/o breast cancer #5 obesity #6 htn #7 hyperlipidemia #8 asthma #9 hypothyroidism: cont meds #10 acute resp failure: cont oxygen DW in length with patient and Still desat when wean off oxygen. Continue IV antibiotic. unstable for transfer Plan discussed with: Patient, Spouse My Orders Orders - WILLEM HANSEN MD Procedure Category Date Status Time Discharge DISCHARGE 05/05/25 Transmitted 16:34 Complete Blood Count LAB 05/07/25 Verified 05:00 Complete Blood Count LAB 05/08/25 Verified 05:00 Basic Metabolic Panel LAB 05/07/25 Verified 05:00 Basic Metabolic Panel LAB 05/08/25 Verified 05:00 Basic Metabolic Panel LAB 05/09/25 Verified 05:00 Basic Metabolic Panel LAB 05/10/25 Verified 05:00 Date of Service: May 06, 2025 Billing Provider: WILLEM HANSEN MD Common Visit Codes: [id number] INP/OBS CARE(HIGH) WILLEM HANSEN MD May 06, 2025 13:06
--- NOTE | 2025-05-06 13:14 | DVHPN2 ---
Subjective The patient seen and examined at bedside. Minimal SOB. Wanted to go home today. Legionella still pending. Reviewed: Care Plan, H&P, Labs, Medications, Previous Orders, Radiology Objective Vitals Vital Signs Date Time Temp Pulse Resp B/P (MAP) Pulse Ox O2 Delivery O2 Flow Rate FiO2 05/06/25 11:38 81 18 99 05/06/25 11:31 Nasal Cannula* 2 28 05/06/25 09:44 129/58 05/06/25 05:00 99.1 99.1 Intake/Output Intake and Output 05/06/25 07:00 Intake Total 1400 ml Balance 1400 ml Intake Oral 1350 ml IV Total 50 ml # Voids 13 # Bowel Movements 10 General Appearance: Alert, Oriented X3, Cooperative, No acute distress HEENT: Atraumatic, PERRLA, EOMI, Mucous membr. moist/pink Neck: Supple Lungs: Clear to auscultation, Normal air movement Cardiovascular: Regular rate, Normal S1, Normal S2, No murmurs, Gallops, Rubs Abdomen: Normal bowel sounds, Soft, No tenderness Neuro: Cranial nerves 3-12 NL Psych/Mental Status: Mental status NL Medications Current Medications Medications Dose Ordered Sig/Magy Route Start Time Stop Time Status Last Admin Dose Admin Acetaminophen 325 mg Q4HP PRN PO 05/01/25 21:00 05/06/25 12:08 325 MG Morphine Sulfate 2 mg Q4HPRN PRN IV 05/01/25 21:45 05/02/25 18:41 2 MG Nitroglycerin 0.4 mg Q5MINP PRN SL 05/01/25 21:00 Morphine Sulfate 2 mg Q30M PRN IV 05/01/25 21:00 Aspirin 81 mg DAILY PO 05/02/25 10:00 05/06/25 09:43 81 MG Atorvastatin Calcium 40 mg HS PO 05/01/25 22:00 05/05/25 21:57 40 MG Levalbuterol HCl 0.625 mg Q6HR NEB 05/02/25 00:00 05/06/25 11:31 0.625 MG Guaifenesin/ Codeine Phosphate 5 ml Q4HPRN PRN PO 05/01/25 21:45 05/06/25 12:07 5 ML Levothyroxine Sodium 25 mcg QAM@0600 PO 05/02/25 06:00 05/05/25 06:15 25 MCG Ipratropium [place] 0.5 mg Q6HR NEB 05/02/25 00:00 05/06/25 11:29 0.5 MG Diagnostic Test (Pha) 1 strip ACHS 05/02/25 07:00 05/06/25 11:11 1 STRIP Insulin Human Regular ACHS SC 05/02/25 07:00 05/03/25 21:08 2 UNITS Dextrose 50 ml UD PRN IV 05/01/25 23:30 Levofloxacin/ Dextrose 100 ml @ 100 mls/hr DAILY IV 05/03/25 10:00 UNV Furosemide 20 mg DAILY IV 05/03/25 10:00 05/06/25 09:44 20 MG Levofloxacin 50 ml @ 50 mls/hr DAILY IV 05/04/25 10:00 05/06/25 09:43 50 MLS/HR Loperamide HCl 2 mg PRN PRN PO 05/04/25 16:15 05/06/25 09:45 2 MG Laboratory Results Laboratory Tests 05/06/25 05:30 Chemistry Test 05/06/25 05:30 Calcium Level 8.0 mg/dL (8.7-10.4) L Urinalysis Test 05/01/25 17:09 Urine Color Colorless (Yellow) Urine Clarity Clear (Clear) Urine pH 5.5 (5.0-9.0) Urine Specific [employer] 1.014 (1.001-1.035) Urine Protein Negative (Negative) Urine Ketones Negative (Negative) Urine Blood Negative /uL (Negative) Urine Nitrite Negative (Negative) Urine Bilirubin Negative (Negative) Urine Urobilinogen Normal mg/dL (Negative) Urine Leukocyte Esterase Negative /uL (Negative) Urine RBC <1 /hpf (0 - 4) Urine Microscopic WBC 1 /HPF (0-5) Urine Squamous Epithelial Cells Few /hpf (<5) Urine Bacteria None seen /hpf (None Seen) Urine Glucose Normal mg/dL (Normal) Microbiology Microbiology Date/Time Source Procedure Growth Status 05/01/25 22:18 Blood Blood Culture - Preliminary NO GROWTH AFTER 72 HOURS OF INCUBATION. Resulted Assessment/Plan Assessment/Plan #1 pneumonia- gram positive/neg with sepsis: iv antibiotics levaquin, legionella still pending #2 nstemi: cardio evaluation. will follow up echo #3 ?acute systolic/diastolic heart failure: continue lasix iv #4 h/o breast cancer #5 obesity #6 htn #7 hyperlipidemia #8 asthma #9 hypothyroidism: cont meds #10 acute resp failure: cont oxygen unstable for transfer DW in length with patient Advise to stay since she still hypoxic, when I take oxygen off patient desat to 89% She agree to stay until tomorrow. My Orders Orders - WILLEM HANSEN MD Procedure Category Date Status Time Discharge DISCHARGE 05/05/25 Transmitted 16:34 Complete Blood Count LAB 05/07/25 Verified 05:00 Complete Blood Count LAB 05/08/25 Verified 05:00 Basic Metabolic Panel LAB 05/07/25 Verified 05:00 Basic Metabolic Panel LAB 05/08/25 Verified 05:00 Basic Metabolic Panel LAB 05/09/25 Verified 05:00 Basic Metabolic Panel LAB 05/10/25 Verified 05:00 WILLEM HANSEN MD May 06, 2025 13:14
[2025-05-07] VITALS (20 sets, daily range): BP systolic 106–131; BP diastolic 51–79; PULSE 80–104; RESP 16–20; TEMP 97.2–98.2; O2SAT 95–100
[2025-05-07 07:36] LABS: Hematocrit 28.2 % (36.0-46.0); Hemoglobin 9.8 g/dL (12.2-16.2); Mean Corpuscular Hemoglobin 32.2 pg (28.0-32.0); Mean Corpuscular Volume 92.5 fL (80.0-100.0); Nucleated Red Blood Cells % 0.1 %
[2025-05-07 07:47] LABS: Anion Gap 9 (5-15); Carbon Dioxide 28 mmol/L (20-31); Potassium 4.0 mmol/L (3.5-5.1)
[2025-05-07 07:53] LABS: BUN/Creatinine Ratio 16.7 (10.0-20.0); Glucose 97 mg/dL (74-106)
[2025-05-07 07:54] LABS: Blood Urea Nitrogen 24 mg/dL (9-23); Calcium 8.1 mg/dL (8.7-10.4); Chloride 97 mmol/L (98-107); Sodium 134 mmol/L (136-145)
--- NOTE | 2025-05-07 12:37 | DVHPN2 ---
Progress Note Date Seen: May 07, 2025 Medical Necessity Reason Pt with a Central, PICC or Fol: No Subjective Patient reports: No new complaints Review of Systems: HEENT:Normal, CVS:Normal, RESPIRATORY:Normal, GI:Normal, :Normal, MSK:Normal, NEURO:Normal Objective vital signs Vital Sign Date Time Temp Pulse Resp B/P (MAP) Pulse Ox O2 Delivery O2 Flow Rate FiO2 05/07/25 11:22 85 18 100 05/07/25 11:12 Room Air 0.0 05/07/25 11:12 21 05/07/25 09:59 115/63 05/07/25 08:43 97.8 97.8 Total Intake and Output 05/06/25 05/06/25 05/07/25 15:00 23:00 07:00 Intake Total 50 ml 475 ml 400 ml Balance 50 ml 475 ml 400 ml medications Current Medications Medications Dose Ordered Sig/Magy Route Start Time Stop Time Status Last Admin Dose Admin Acetaminophen 325 mg Q4HP PRN PO 05/01/25 21:00 05/06/25 17:04 325 MG Morphine Sulfate 2 mg Q4HPRN PRN IV 05/01/25 21:45 05/02/25 18:41 2 MG Nitroglycerin 0.4 mg Q5MINP PRN SL 05/01/25 21:00 Morphine Sulfate 2 mg Q30M PRN IV 05/01/25 21:00 Aspirin 81 mg DAILY PO 05/02/25 10:00 05/07/25 09:59 81 MG Atorvastatin Calcium 40 mg HS PO 05/01/25 22:00 05/06/25 21:03 40 MG Levalbuterol HCl 0.625 mg Q6HR NEB 05/02/25 00:00 05/07/25 11:12 0.625 MG Guaifenesin/ Codeine Phosphate 5 ml Q4HPRN PRN PO 05/01/25 21:45 05/06/25 17:04 5 ML Levothyroxine Sodium 25 mcg QAM@0600 PO 05/02/25 06:00 05/07/25 06:13 25 MCG Ipratropium [place] 0.5 mg Q6HR NEB 05/02/25 00:00 05/07/25 11:12 0.5 MG Diagnostic Test (Pha) 1 strip ACHS 05/02/25 07:00 05/07/25 11:17 1 STRIP Insulin Human Regular ACHS SC 05/02/25 07:00 05/03/25 21:08 2 UNITS Dextrose 50 ml UD PRN IV 05/01/25 23:30 Levofloxacin/ Dextrose 100 ml @ 100 mls/hr DAILY IV 05/03/25 10:00 UNV Furosemide 20 mg DAILY IV 05/03/25 10:00 05/07/25 09:59 20 MG Levofloxacin 50 ml @ 50 mls/hr DAILY IV 05/04/25 10:00 05/07/25 09:59 50 MLS/HR Loperamide HCl 2 mg PRN PRN PO 05/04/25 16:15 05/06/25 21:03 2 MG Examination: GENERAL:Normal, HEENT:Normal, NECK:Normal, LUNGS:Normal, LUNGS:Abnormal (ON OXYGEN), CVS:Normal, ABDOMEN:Normal, MSK:Normal, SKIN:Normal, NEURO:Normal, :Normal laboratory and microbiology Laboratory Tests 05/07/25 06:39 Test 05/07/25 06:39 Range/Units Serum Glucose 97 74-106 mg/dL Microbiology Date/Time Source Procedure Growth Status 05/01/25 22:18 Blood Blood Culture - Final NO GROWTH AFTER 5 DAYS OF INCUBATION. Complete Problem List/Assessment/Plan Problem List/Assessment/Plan #1 pneumonia- gram positive/neg with sepsis: iv antibiotics, check legionella #2 nstemi: cardio eval #3 ?acute systolic/diastolic heart failure: dc lasix iv #4 h/o breast cancer #5 obesity #6 htn #7 hyperlipidemia #8 asthma #9 hypothyroidism: cont meds #10 acute resp failure: cont oxygen #11 acute renal failure ?vasomotor nephropathy unstable for transfer advance care planning- full code- time spent 18mins Plan discussed with: Patient, Spouse Date of Service: May 07, 2025 Billing Provider: JAMES SEO MD Common Visit Codes: [id number] INP/OBS CARE(HIGH) JAMES SEO MD May 07, 2025 12:37
[2025-05-08] VITALS (9 sets, daily range): BP systolic 108–128; BP diastolic 54–77; PULSE 75–105; RESP 17–20; TEMP 97.9–98.4; O2SAT 93–100
[2025-05-08 05:35] LABS: Potassium 3.7 mmol/L (3.5-5.1)
[2025-05-08 05:36] LABS: Anion Gap 10 (5-15); Carbon Dioxide 27 mmol/L (20-31)
[2025-05-08 05:42] LABS: BUN/Creatinine Ratio 16.5 (10.0-20.0); Blood Urea Nitrogen 23 mg/dL (9-23)
[2025-05-08 05:50] LABS: Hematocrit 27.9 % (36.0-46.0); Hemoglobin 9.7 g/dL (12.2-16.2); Mean Corpuscular Hemoglobin 31.9 pg (28.0-32.0); Mean Corpuscular Volume 91.8 fL (80.0-100.0); Nucleated Red Blood Cells % 0.1 %
[2025-05-08 05:54] LABS: Calcium 8.1 mg/dL (8.7-10.4); Chloride 98 mmol/L (98-107); Glucose 106 mg/dL (74-106); Sodium 135 mmol/L (136-145)
--- NOTE | 2025-05-08 07:25 | DVH ---
XY CHEST TWO VIEWS ROUTINE CLINICAL HISTORY: pneumonia COMPARISON: XY CHEST PORTABLE on DOS: 05/03/25, CT CT ANGIO CHEST CONTRAST on DOS: 05/01/25, XY CHEST P ORTABLE on DOS: 05/01/25, XY CHEST PORTABLE on DOS: 05/03/25 TECHNIQUE: Single frontal view of the chest was obtained FINDINGS: Lines and Tubes: None Lungs: Diffuse increased prominence of the pulmonary vasculature. No evidence of focal consolidation . Pleura: No effusion. No pneumothorax. Cardiomediastinal contours: Cardiomegaly. Bones: Unremarkable IMPRESSION: 1. Cardiomegaly with pulmonary vascular congestion.
--- NOTE | 2025-05-08 10:41 | DVHPN2 ---
Progress Note Date Seen: May 08, 2025 Medical Necessity Reason Pt with a Central, PICC or Fol: No Subjective Patient reports: No new complaints Review of Systems: HEENT:Normal, CVS:Normal, RESPIRATORY:Normal, GI:Normal, :Normal, MSK:Normal, NEURO:Normal Objective vital signs Vital Sign Date Time Temp Pulse Resp B/P (MAP) Pulse Ox O2 Delivery O2 Flow Rate FiO2 05/08/25 09:21 98.4 105 17 121/65 (83) 93 98.4 05/08/25 07:04 Nasal Cannula* 1 24 Total Intake and Output 05/07/25 05/07/25 05/08/25 15:00 23:00 07:00 Intake Total 50 ml 500 ml Balance 50 ml 500 ml medications Current Medications Medications Dose Ordered Sig/Magy Route Start Time Stop Time Status Last Admin Dose Admin Acetaminophen 325 mg Q4HP PRN PO 05/01/25 21:00 05/06/25 17:04 325 MG Morphine Sulfate 2 mg Q4HPRN PRN IV 05/01/25 21:45 05/02/25 18:41 2 MG Nitroglycerin 0.4 mg Q5MINP PRN SL 05/01/25 21:00 Morphine Sulfate 2 mg Q30M PRN IV 05/01/25 21:00 Aspirin 81 mg DAILY PO 05/02/25 10:00 05/08/25 09:22 81 MG Atorvastatin Calcium 40 mg HS PO 05/01/25 22:00 05/07/25 21:43 40 MG Levalbuterol HCl 0.625 mg Q6HR NEB 05/02/25 00:00 05/08/25 07:04 0.625 MG Guaifenesin/ Codeine Phosphate 5 ml Q4HPRN PRN PO 05/01/25 21:45 05/06/25 17:04 5 ML Levothyroxine Sodium 25 mcg QAM@0600 PO 05/02/25 06:00 05/08/25 06:02 25 MCG Ipratropium Salol 0.5 mg Q6HR NEB 05/02/25 00:00 05/08/25 07:04 0.5 MG Diagnostic Test (Pha) 1 strip ACHS 05/02/25 07:00 05/08/25 06:07 1 STRIP Insulin Human Regular ACHS SC 05/02/25 07:00 05/03/25 21:08 2 UNITS Dextrose 50 ml UD PRN IV 05/01/25 23:30 Levofloxacin/ Dextrose 100 ml @ 100 mls/hr DAILY IV 05/03/25 10:00 UNV Levofloxacin 50 ml @ 50 mls/hr DAILY IV 05/04/25 10:00 05/08/25 09:22 50 MLS/HR Loperamide HCl 2 mg PRN PRN PO 05/04/25 16:15 05/06/25 21:03 2 MG Examination: GENERAL:Normal, HEENT:Normal, NECK:Normal, LUNGS:Normal, CVS:Normal, ABDOMEN:Normal, MSK:Normal, SKIN:Normal, NEURO:Normal, :Normal laboratory and microbiology Laboratory Tests 05/08/25 05:00 Test 05/08/25 05:00 Range/Units Serum Glucose 106 74-106 mg/dL Microbiology Date/Time Source Procedure Growth Status 05/01/25 22:18 Blood Blood Culture - Final NO GROWTH AFTER 5 DAYS OF INCUBATION. Complete Problem List/Assessment/Plan Problem List/Assessment/Plan #1 pneumonia- gram positive/neg with sepsis: iv antibiotics, check legionella #2 nstemi: cardio eval #3 ?acute systolic/diastolic heart failure: dc lasix iv #4 h/o breast cancer #5 obesity #6 htn #7 hyperlipidemia #8 asthma #9 hypothyroidism: cont meds #10 acute resp failure: cont oxygen #11 acute renal failure ?vasomotor nephropathy advance care planning- full code- time spent 18mins Plan discussed with: Patient, Spouse My Orders My Orders Orders - JAMES SEO MD Procedure Category Date Status Time Chest Two Views XY 05/08/25 Resulted Routine 08:00 Discharge DISCHARGE 05/08/25 Transmitted 10:32 Dietary Evaluation Review Comments: Nutrition Recommendation: 1) Ensure High Protein 240ml BID if PO intake <50% 2) Monitor PO intake, lab values, weight trend, and I/O Expected Outcomes/Goals: To meet >75% estimated needs Fu 3-5 days Date of Service: May 08, 2025 Billing Provider: JAMES SEO MD Common Visit Codes: [id number] INP/OBS CARE(HIGH) JAMES SEO MD May 08, 2025 10:41
== END 2025-05-08 13:00 | disposition home or self-care (01) | DRG 871 ==
LOC: EDBD 16:28 → ER 16:33 → OVERFLOW 20:59 → EEVIPCON 20:59 → OVERFLOW 21:03 → TELE-EAST 05-02 03:05
PROVIDERS: ADMIT Internal Medicine; ATTEND Internal Medicine
DX: A41.9 Sepsis, unspecified organism (principal); I21.4 Non-ST elevation (NSTEMI) myocardial infarction; I50.41 Acute combined systolic (congestive) and diastolic (congestive) heart failure; N17.0 Acute kidney failure with tubular necrosis; J15.69 Pneumonia due to other Gram-negative bacteria; J15.9 Unspecified bacterial pneumonia; J96.00 Acute respiratory failure, unspecified whether with hypoxia or hypercapnia; Z68.1 Body mass index [BMI] 19.9 or less, adult; Z20.822 Contact with and (suspected) exposure to COVID-19; I11.0 Hypertensive heart disease with heart failure; E78.5 Hyperlipidemia, unspecified; E66.9 Obesity, unspecified; J45.909 Unspecified asthma, uncomplicated; E03.9 Hypothyroidism, unspecified; Z92.3 Personal history of irradiation; Z85.3 Personal history of malignant neoplasm of breast
CPT/HCPCS: 36415; 71045; 71046; 71275; 80048; 80053; 80061; 80076; 80307; 81001; 82306; 82607; 82728; 82962; 83036; 83540; 83550; 83605; 83735; 83880; 84100; 84443; 84484; 85025; 85379; 85610; 85652; 85730; 86141; 87040; 87278; 87426; 87804; 93306; 93970; 94640; 99291; G0378; J1815; J1956